=== PATIENT | male | born 1945 | race Caucasian/White ===

== ENCOUNTER → 2018-01-29 | Outpatient (REF) | payer OTHER ==
[2018-01-29 12:54] LABS: BASO # 0.1 10^3/uL (0.0-0.2); BASO % 1.2 % (0.0-1.0); EOS # 0.2 10^3/uL (0.0-0.50); EOS % 4.8 % (0.0-3.0); HEMATOCRIT 39.6 % (42.0-52.0); HEMOGLOBIN 12.8 g/dl (13.5-17.5); IMMATURE GRANULOCYTE % 0.2 % (0-3.0); LYMPH # 1.2 10^3/uL (1.5-4.5); LYMPH % 29.1 % (24.0-44.0); MEAN CORPUSCULAR HGB CONC 32.3 g/dl (32.0-36.5); MEAN CORPUSCULAR VOLUME 92.7 fl (80.0-96.0); MONO # 0.4 10^3/uL (0.0-0.8); MONO % 9.9 % (0.0-5.0); NEUTROPHILS # 2.3 10^3/uL (1.8-7.7); NEUTROPHILS % 54.8 % (36.0-66.0); PLATELET COUNT, AUTOMATED 262 10^3/uL (150-450); RED BLOOD COUNT 4.27 10^6/uL (4.30-6.10); RED CELL DISTRIBUTION WIDTH 13.8 % (11.5-14.5); WHITE BLOOD COUNT 4.1 10^3/uL (4.0-10.0)
[2018-01-29 13:14] LABS: ALBUMIN 3.5 GM/DL (3.2-5.2); ALKALINE PHOSPHATASE 70 U/L (45-117); ALT/SGPT 29 U/L (12-78); ANION GAP 5 MEQ/L (8-16); AST/SGOT 19 U/L (7-37); BILIRUBIN,TOTAL 0.3 MG/DL (0.2-1.0); BLOOD UREA NITROGEN 31 MG/DL (7-18); CALCIUM LEVEL 8.6 MG/DL (8.8-10.2); CARBON DIOXIDE LEVEL 30 MEQ/L (21-32); CHLORIDE LEVEL 107 MEQ/L (98-107); CHOLESTEROL LEVEL 179 MG/DL (<200); CHOLESTEROL RISK RATIO 2.386 (<5); CREATININE FOR GFR 0.83 MG/DL (0.70-1.30); GLOMERULAR FILTRATION RATE > 60.0 (>42); GLUCOSE, FASTING 92 MG/DL (70-100); HDL CHOLESTEROL 75 MG/DL (>40); NON-HDL-C 104 MG/DL; POTASSIUM SERUM 4.7 MEQ/L (3.5-5.1); SODIUM LEVEL 142 MEQ/L (136-145); TRIGLYCERIDES LEVEL 55 MG/DL (<150)
[2018-01-31 00:07] LABS: PSA TOTAL 2.9 ng/mL (0.0-4.0)
== END ==
LOC: M SFHCADAM 08:11
DX: Z00.00 Encounter for general adult medical examination without abnormal findings (principal); R35.0 Frequency of micturition; M25.511 Pain in right shoulder; E78.00 Pure hypercholesterolemia, unspecified
CPT/HCPCS: 84443

== ENCOUNTER → 2018-02-27 | Outpatient (REF) | payer OTHER ==
[2018-02-27 19:58] LABS: FERRITIN 115 NG/ML (26-388); IRON (FE) 98 UG/DL (65-175); PERCENT SATURATION 26.2 % (19.7-50.0); TOTAL IRON BINDING CAPACITY 374 UG/DL (250-450)
[2018-02-27 19:59] LABS: FOLATE 10.8 NG/ML
[2018-02-27 20:01] LABS: FREE T4 0.69 NG/DL (0.76-1.46)
[2018-02-27 20:05] LABS: BASO # 0.1 10^3/uL (0.0-0.2); BASO % 0.9 % (0.0-1.0); EOS # 0.1 10^3/uL (0.0-0.50); HEMATOCRIT 38.8 % (42.0-52.0); HEMOGLOBIN 12.8 g/dl (13.5-17.5); IMMATURE GRANULOCYTE % 0.3 % (0-3.0); LYMPH % 14.8 % (24.0-44.0); MEAN CORPUSCULAR VOLUME 91.1 fl (80.0-96.0); MONO # 0.7 10^3/uL (0.0-0.8); MONO % 9.5 % (0.0-5.0); NEUTROPHILS # 5.1 10^3/uL (1.8-7.7); NEUTROPHILS % 73.5 % (36.0-66.0); PLATELET COUNT, AUTOMATED 261 10^3/uL (150-450); RED BLOOD COUNT 4.26 10^6/uL (4.30-6.10); RED CELL DISTRIBUTION WIDTH 13.9 % (11.5-14.5)
[2018-02-27 23:34] LABS: VITAMIN B12 LEVEL 373 PG/ML
== END ==
LOC: M SFHCADAM 15:29
DX: E03.9 Hypothyroidism, unspecified (principal); D64.9 Anemia, unspecified
CPT/HCPCS: 82746

== ENCOUNTER → 2018-04-10 | Outpatient (REF) | payer OTHER ==
[2018-04-10 13:07] LABS: FREE T4 0.84 NG/DL (0.76-1.46)
== END ==
LOC: M SFHCADAM 08:00
DX: E03.9 Hypothyroidism, unspecified (principal)
CPT/HCPCS: 84443

== ENCOUNTER → 2018-05-29 | Outpatient (REF) | payer OTHER ==
[2018-05-29 15:37] LABS: FREE T4 0.92 NG/DL (0.76-1.46)
== END ==
LOC: M SFHCADAM 11:10
DX: E03.9 Hypothyroidism, unspecified (principal)
CPT/HCPCS: 84443

== ENCOUNTER → 2018-07-23 | Outpatient (REF) | payer OTHER ==
[2018-07-23 14:29] LABS: FREE T4 0.53 NG/DL (0.76-1.46)
== END ==
LOC: M SFHCADAM 08:02
DX: E03.9 Hypothyroidism, unspecified (principal)
CPT/HCPCS: 84443

== ENCOUNTER → 2018-08-27 | Outpatient (CLI) | payer MEDICARE ==
[~2018-08-27] MED LIST: LEVO75TA4 PO; PROS5TAB PO
[2018-08-27 11:17] LABS: HEMATOCRIT 39.1 % (42.0-52.0); HEMOGLOBIN 12.6 g/dl (13.5-17.5); MEAN CORPUSCULAR HEMOGLOBIN 29.7 pg (27.0-33.0); MEAN CORPUSCULAR HGB CONC 32.2 g/dl (32.0-36.5); MEAN CORPUSCULAR VOLUME 92.2 fl (80.0-96.0); PLATELET COUNT, AUTOMATED 288 10^3/uL (150-450); RED BLOOD COUNT 4.24 10^6/uL (4.30-6.10); WHITE BLOOD COUNT 6.6 10^3/uL (4.0-10.0)
[2018-08-27 11:23] LABS: ALBUMIN 3.3 GM/DL (3.2-5.2); ALT/SGPT 23 U/L (12-78); BILIRUBIN,TOTAL 0.2 MG/DL (0.2-1.0); BLOOD UREA NITROGEN 22 MG/DL (7-18); CALCIUM LEVEL 8.3 MG/DL (8.8-10.2); CARBON DIOXIDE LEVEL 30 MEQ/L (21-32); CHLORIDE LEVEL 106 MEQ/L (98-107); CREATININE FOR GFR 0.83 MG/DL (0.70-1.30); GLOMERULAR FILTRATION RATE > 60.0 (>42); GLUCOSE, FASTING 91 MG/DL (70-100); POTASSIUM SERUM 4.6 MEQ/L (3.5-5.1); SODIUM LEVEL 142 MEQ/L (136-145); TOTAL PROTEIN 7.2 GM/DL (6.4-8.2)
[2018-08-27 11:28] LABS: INR 1.05; PROTHROMBIN TIME 13.9 SECONDS (12.1-14.4)
[2018-08-27 11:41] LABS: ERYTHROCYTE SEDIMENTATION RATE 30 mm/hr (0-20)
--- NOTE | 2018-08-27 20:38 | ECGEPIP ---
Stationary ECG Study [facility] Test Date: 2018-08-27 Pat Name: GABRIELLE DORANTES Department: Room: - Gender: M Pond Tender: : 1945 Requested By: Casimiro Montenegro Order Number: [id number] Reading MD: Jae Castle Measurements Intervals [place] Rate: 64 P: 14 DE: 138 QRS: 45 QRSD: 94 T: 31 QT: 418 QTc: 434 Interpretive Statements SINUS RHYTHM Within normal limits. No prior ECG available for comparison at the time of interpretation. Electronically Signed On 08-27-2018 20:38:29 EST by Jae Castle
--- NOTE | 2018-08-28 02:32 | REP ---
Clinical: Preoperative assessment for arthroplasty . Comparison: None of the . Technique: PA and lateral. Findings: The mediastinum and cardiac silhouette are normal. The lung see are clear and without acute consolidation, effusion, or pneumothorax. The skeletal structures are intact and normal. Evidence for prior right shoulder replacement. Impression: 1. No acute cardiopulmonary process. Electronically Signed by Drake Cruz MD 08/28/2018 02:25 A
== END ==
LOC: M LAB 10:27
PROVIDERS: ATTEND Family Medicine
DX: Z01.818 Encounter for other preprocedural examination (principal); M17.11 Unilateral primary osteoarthritis, right knee

== ENCOUNTER 2018-09-18 06:59 | Inpatient (IN) | payer MEDICARE ==
--- NOTE | 2018-09-11 02:29 | HPE ---
DATE OF ADMISSION: 09/18/2018 CHIEF COMPLAINT: Right knee pain. HISTORY OF PRESENT ILLNESS: Peter is a pleasant 73-year-old male with progressively worsening right knee pain and stiffness. He has failed to improve with conservative treatment. He has elected for surgery for his continued symptoms. He has pain with weightbearing activities and his activities of daily living. X-rays of his knee are notable for advanced osteoarthritis of the right knee joint. He has consented for a right total knee arthroplasty by Dr. Berry Giron. Medical optimization was performed by Dr. Montenegro's office. ALLERGIES: No known allergies. CURRENT MEDICATIONS - Synthroid 75 mcg once a day PAST MEDICAL HISTORY: Hypothyroidism. PAST SURGICAL HISTORY: Right shoulder replacement. SOCIAL HISTORY: This patient is retired. Does not smoke or drink alcohol. FAMILY HISTORY: Family history is noncontributory. REVIEW OF SYSTEMS: This patient denies chest pain, heart palpitations, cough, wheezing, difficulty breathing and shortness of breath. He denies abdominal pain, nausea, vomiting, diarrhea or constipation. He denies recent upper respiratory infection or urinary tract infection symptoms. He does complain of persistent pain in the right knee and pain with weightbearing activities in the right knee. PHYSICAL EXAMINATION: GENERAL: He is a well-nourished, well-developed in no acute distress, alert male patient. He walks with a moderate limp favoring the right lower extremity. He is not using assistive devices. VITAL SIGNS: He is 5 feet 5, weighs 143 pounds with a temperature of 97.4, blood pressure 129/70, pulse of 58 and respirations of 18. NECK: Neck was supple without adenopathy or jugular venous distension. There were no carotid bruits appreciated upon auscultation. LUNGS: Lungs were clear to auscultation without rales or wheeze throughout. HEART: Regular rate and rhythm. ABDOMEN: Bowel sounds were present. EXTREMITIES: Examination of the knee revealed intact skin. He had decreased range of motion secondary to pain and stiffness. The limb was neurovascularly intact. LABORATORY DATA: EKG showed sinus rhythm at 64 beats per minute. Chest x-ray showed no acute cardiopulmonary disease processes. Complete blood count (CBC) showed red count of 4.24, hemoglobin of 12.6, hematocrit of 39.1 and a sedimentation rate of 30, otherwise within normal limits. Glucose 91, BUN 22, creatinine 0.83, sodium 142, potassium 4.6. Protime 13.9, INR 1.05. IMPRESSION: Symptomatic osteoarthritis of the right knee joint. PLAN: Consented for a right total knee arthroplasty by Dr. Berry Giron.
[2018-09-18] VITALS (8 sets, daily range): BP systolic 115–150; BP diastolic 57–90
[~2018-09-18] VITALS: Ht 172.7 cm; Wt 68.9 kg
[~2018-09-18 06:59] MED LIST changes: +ACETAMINOPHEN 500 MG TAB PO ONE; +LIDOCAINE 1% MDV 20ML VIAL SQ PRN; +LR 1,000 ML IV ONE
[2018-09-18] MEDS ORDERED: fentaNYL 100 MCG/2 ML INJECTION (J3010) As Ordered ONE ×2 (08:28→10:58)
[2018-09-18] MEDS ORDERED: MIDAZOLAM INJ 2 MG/2 ML VIAL (J2250) As Ordered ONE ×2 (08:28→10:58)
[2018-09-18] MEDS ORDERED: ceFAZolin 1GM INJ (J0690 PER 500MG) As Ordered ONE (09:52)
[2018-09-18] MEDS ORDERED: BUPIVACAINE HCL 0.25% 30 ML VIAL As Ordered ONE (09:52)
[2018-09-18] MEDS ORDERED: TRANEXAMIC ACID 100 MG/ML 10ML VIAL As Ordered ONE (09:52)
[2018-09-18] MEDS ORDERED: EPINEPHrine INJ 1 MG/ML 1ML AMP As Ordered ONE (09:52)
[2018-09-18] MEDS ORDERED: BUPIVACAINE LIPOSOME/PF 1.3% 20ML VIAL (13.3MG/ML)(EXPAREL)(C9290 PER1MG) As Ordered ONE (09:52)
[2018-09-18] MEDS ORDERED: MIDAZOLAM INJ 2 MG/2 ML VIAL (J2250) IV ONE (10:00)
[2018-09-18] MEDS ORDERED: fentaNYL 100 MCG/2 ML INJECTION (J3010) IV ONE (10:00)
[2018-09-18] MEDS ORDERED: PROPOFOL 200 MG/20 ML VIAL As Ordered ONE (10:58)
[2018-09-18] MEDS ORDERED: BUPIVACAINE/DEXTROSE 0.75% 2 ML AMP As Ordered ONE (10:58)
[2018-09-18] MEDS ORDERED: ePHEDrine SULFATE 25 MG/5 ML(5MG/ML) SYRINGE As Ordered ONE (11:25)
[2018-09-18] MEDS ORDERED: NORCO, ANEXSIA 5/325MG TABLET (HYDROcodone/ACETAMINOPHEN) PO PRN (13:00)
[2018-09-18] MEDS ORDERED: fentaNYL 100 MCG/2 ML INJECTION (J3010) IV PRN (13:00)
[2018-09-18] MEDS ORDERED: MORPHINE 4 MG/ML 1ML VIAL/SYRINGE (J2270) IV PRN (13:00)
[2018-09-18] MEDS ORDERED: LR 1,000 ML IV SCH ×2 (13:00)
[2018-09-18] MEDS ORDERED: HYDROMORPHONE HCL 0.5 MG/ 0.5 ML SYRINGE (J1170 PER 1) IV PRN (13:00)
[2018-09-18] MEDS ORDERED: ONDANSETRON 4MG/2ML VIAL (J2405) IV PRN (13:00)
[2018-09-18] MEDS ORDERED: PERCOCET 5MG/325MG TAB PO PRN (13:00)
--- NOTE | 2018-09-18 13:10 | RO ---
DATE OF PROCEDURE: 09/18/2018 PREOPERATIVE DIAGNOSIS: Right knee severe varus tricompartmental degenerative arthritis. POSTOPERATIVE DIAGNOSIS: Right knee severe varus tricompartmental degenerative arthritis. PROCEDURE: Right total knee arthroplasty using a size 6 cruciate retaining femoral component with a 10 mm rotating platform polyethylene insert and a 38 mm polyethylene button. Prosthesis made by [employer]. It was an ATTUNE knee. SURGEON: Latoya Giron MD CLINICAL PHARMACOLOGIST: Talisha Delgado PA-C ANESTHESIA: Right femoral nerve block with a spinal anesthetic. COMPLICATIONS: None. PROCEDURE: Antibiotics were given intravenously preoperatively, then a successful right femoral nerve block, and then a spinal anesthetic was established, then a tourniquet was placed right upper thigh and not inflated. The right lower extremity was carefully prepped and draped in the usual sterile fashion. Then, after appropriate time out, the tourniquet was inflated. A longitudinal incision was made for a medial parapatellar approach to the knee. Bovie cautery was used to coagulate crossing vessels. A subperiosteal dissection around the proximal medial portion of the tibia was performed for this varus knee. The subperiosteal dissection around the proximal lateral tibial plateau was then performed. We then everted the patella and flexed the knee. Drill was placed down the center of the femoral canal. Surrounding osteophytes off the femur were removed with a rongeur. Distal femoral jig was applied, attached to the intramedullary juma. It was set a 5 degree valgus cut at 9 mm resection level for a right knee. The block was pinned into position and distal femoral cut performed. AP sizing jig measured for a size 6. The 4-in-1 block was applied making sure the rotation was appropriate at 3 degrees, pinned into posiiton. The anterior, posterior and chamfer cuts were thus performed. We then applied the femoral template for the notchplasty that was secured on the distal femur and notchplasty performed. We then exposed the proximal tibia. Used the extramedullary alignment jig to estimate being parallel to the mechanical axis of the tibia. We referenced off the medial tibial condyle at the 4 mm resection level. We took a little bit less than that, just because I did not want to deepen the cut to much, and the block was pinned in position and secondary check of the extramedullary juma confirmed that we appeared to be parallel to the mechanical axis of the tibia. Proximal tibial osteotomy was thus performed. We then placed the lamina creative coordinator medially and performed a completion lateral meniscectomy with debridement of the posterolateral osteophytes. We then placed the lamina creative coordinator laterally and performed a completion medial meniscectomy with debridement of the posteromedial osteophytes. There was large loose body in the suprapatellar pouch that was also removed. We then trialed the spacers and the 10 fit the best. There was good symmetry between varus valgus stress testing both in flexion and extension. We then exposed the proximal tibia, sized for a #6 tray, which was pinned in position followed by the reamer and broach. The trial 10 polyethylene was placed, then the trial femoral component applied, brought the knee into extension, everted the patella, performed patellar osteotomy, sized for a 38 button. Lug holes were drilled and the trial was placed and the patellofemoral tracking was anatomic. We then drilled the holes for the femur, removed all the trial components, placed Exparel in the subperiosteal tissues around the distal femur and the proximal tibia. Mr. Delgado mixed the cement on the back table. He was also critical to the success of this difficult operation by helping me with soft tissue retraction, helping to close the wound, helping with manipulating the knee as needed so I could perform the operation smoothly and efficiently. We then dried all of the bony surfaces thoroughly after the bony surfaces were felt to be nice and irrigated and prepared for the cement. Then we cemented the tibial tray, removed excess cement, placed the polyethylene, cemented the femoral component and removed excess cement, brought the knee into extension, everted the patella, cemented the patellar button and held it with a clamp with the knee in extension, and then removed the excess cement. While the knee was held in extension, we copiously irrigated out the knee joint ten placed tranexamic acid and began closing the apex of the arthrotomy with two #1 PDS sutures. The medial parapatellar area was closed with a #1 PDS and then a running #1 STRATAFIX double armed was used to close the capsule. We then released the tourniquet, irrigated between layers, and closed the deep subdermal tissues with interrupted #2-0 PDS sutures. Skin was closed with libra, covered by an Optifoam with dry sterile bulky dressing. He was then transferred to the recovery room in stable condition. There were no intraoperative complications.
--- NOTE | 2018-09-18 13:16 | REP ---
Clinical: Status post knee replacement. Technique AP and cross-table lateral views. Findings: The patient is status post right knee replacement with normal positioning and appearance to the femoral and tibial components. Overlying postsurgical changes appreciated. Impression: Status post right knee replacement. Electronically Signed by Drake Cruz MD 09/18/2018 01:08 P
[2018-09-18] MEDS ORDERED: ACETAMINOPHEN TAB 650MG DOSE (2X325MG) PO PRN (15:45)
[2018-09-18] MEDS ORDERED: FLEET ENEMA PR PRN (15:45)
[2018-09-18] MEDS: NORCO, ANEXSIA 5/325MG TABLET (HYDROcodone/ACETAMINOPHEN) PO PRN ×2 (15:59→20:32)
[2018-09-19 02:00] VITALS: BP 112/55
[2018-09-19 06:00] VITALS: BP 108/55
[2018-09-19] MEDS ORDERED: LEVOTHYROXINE 75MCG TABLET (0.075MG) PO SCH (06:00)
[2018-09-19] MEDS ORDERED: XARE10TA PO (06:47)
[2018-09-19] MEDS ORDERED: HYDR-3713 PO (06:47)
[2018-09-19 06:51] LABS: HEMOGLOBIN 10.5 g/dl (13.5-17.5); MEAN CORPUSCULAR HEMOGLOBIN 29.8 pg (27.0-33.0); MEAN CORPUSCULAR HGB CONC 32.8 g/dl (32.0-36.5); MEAN CORPUSCULAR VOLUME 90.9 fl (80.0-96.0); PLATELET COUNT, AUTOMATED 249 10^3/uL (150-450); RED BLOOD COUNT 3.52 10^6/uL (4.30-6.10); WHITE BLOOD COUNT 9.3 10^3/uL (4.0-10.0)
[2018-09-19 07:13] LABS: BLOOD UREA NITROGEN 23 MG/DL (7-18); CALCIUM LEVEL 7.9 MG/DL (8.8-10.2); CARBON DIOXIDE LEVEL 28 MEQ/L (21-32); CHLORIDE LEVEL 103 MEQ/L (98-107); CREATININE FOR GFR 0.84 MG/DL (0.70-1.30); GLOMERULAR FILTRATION RATE > 60.0 (>42); GLUCOSE, FASTING 113 MG/DL (70-100); POTASSIUM SERUM 4.1 MEQ/L (3.5-5.1); SODIUM LEVEL 136 MEQ/L (136-145)
[2018-09-19 07:22] LABS: INR 1.16
[2018-09-19] MEDS: NORCO, ANEXSIA 5/325MG TABLET (HYDROcodone/ACETAMINOPHEN) PO PRN (08:24)
[2018-09-19] MEDS ORDERED: SENOKOT S TAB PO SCH (09:00)
[2018-09-19] MEDS ORDERED: MOM 30ML SUSPENSION UDC PO SCH (09:00)
[2018-09-19] MEDS ORDERED: MIRALAX *UNIT DOSE* 17GM PACKET PO SCH (09:00)
[2018-09-19] MEDS ORDERED: LIDOCAINE 1% MDV 20ML VIAL ONE (11:04)
[2018-09-19] MEDS ORDERED: ROPIvacaine 0.5% 30 ML INJECTION (J2795 PER 1MG) ONE (11:04)
[2018-09-19] MEDS ORDERED: dexameTHASONE 10 MG/1 ML VIAL PRES.FREE (J1100) ONE (11:04)
[2018-09-19] MEDS ORDERED: RIVAROXABAN 10 MG TAB (XARELTO) PO SCH (18:00)
--- NOTE | 2018-09-21 15:20 | DSES ---
DATE OF ADMISSION: 09/18/2018 DATE OF DISCHARGE: 09/19/2018 ATTENDING PHYSICIAN: Dr. Berry Giron ADMISSION DIAGNOSIS: Right knee osteoarthritis. DISCHARGE DIAGNOSIS: Right knee osteoarthritis status post right total knee arthroplasty. PROCEDURE PERFORMED: Right total knee arthroplasty. OTHER DIAGNOSES: Hypothyroidism. HISTORY AND HOSPITAL COURSE: This is a pleasant 73-year-old gentleman who was admitted to the hospital for elective right knee total arthroplasty with Dr. Giron. Surgery was without complications and his hospital course was without complication. He was weightbearing with physical therapy on the day of surgery and his pain was controlled postoperatively. He will follow DVT prophylaxis protocol and will be sent home on his preoperative medications as well as oral pain medications for pain control. We will see him back in 10-14 days in our office for initial postop visit. Postoperative instructions to include wound care to include but not limited to wound care were discussed with the patient and all questions were answered.
== END 2018-09-19 11:05 | disposition home or self-care (01) | DRG 470 ==
LOC: M OR 06:59 → M MS5PR 14:00
PROVIDERS: ADMIT Orthopaedic Surgery; ATTEND Orthopaedic Surgery
PROC: 0SRC0J9 Replacement of Right Knee Joint with Synthetic Substitute, Cemented, Open Approach (ICD-10-PCS; principal; 2018-09-18 09:10)
DX: M17.11 Unilateral primary osteoarthritis, right knee (principal); E03.9 Hypothyroidism, unspecified

== ENCOUNTER → 2018-10-08 | Outpatient (REF) | payer MEDICARE ==
[~2018-10-08] MED LIST changes: -ACETAMINOPHEN 500 MG TAB PO ONE; +HYDR-3713 PO; -LIDOCAINE 1% MDV 20ML VIAL SQ PRN; -LR 1,000 ML IV ONE; +XARE10TA PO
[2018-10-08 13:33] LABS: FREE T4 0.79 NG/DL (0.76-1.46); THYROID STIMULATING HORMONE 4.9 uIU/ML (0.358-3.740)
== END ==
LOC: M SFHCADAM 09:11
PROVIDERS: ATTEND Physician Assistant Medical
DX: E03.9 Hypothyroidism, unspecified (principal)

== ENCOUNTER → 2018-10-16 | Outpatient (CLI) | payer MEDICARE ==
[2018-10-16 14:19] LABS: PTH INTACT 38.5 PG/ML (18.5-88.0); RHEUMATOID FACTOR QUANT < 10.0 IU/ML (<15.0)
[2018-10-18 00:08] LABS: ANTINUCLEAR ANTIBODIES DIRECT Negative (Negative)
== END ==
LOC: M LABDRWAD 10:48
PROVIDERS: ATTEND Allergy & Immunology Allergy
DX: L29.9 Pruritus, unspecified (principal)

== ENCOUNTER → 2018-10-29 | Outpatient (REF) | payer MEDICARE ==
[2018-10-29 15:14] LABS: ALBUMIN 3.6 GM/DL (3.2-5.2); ALT/SGPT 38 U/L (12-78); BILIRUBIN,TOTAL 0.4 MG/DL (0.2-1.0); BLOOD UREA NITROGEN 23 MG/DL (7-18); CALCIUM LEVEL 8.2 MG/DL (8.8-10.2); CARBON DIOXIDE LEVEL 30 MEQ/L (21-32); CHLORIDE LEVEL 107 MEQ/L (98-107); CREATININE FOR GFR 0.91 MG/DL (0.70-1.30); GLOMERULAR FILTRATION RATE > 60.0 (>42); GLUCOSE, FASTING 91 MG/DL (70-100); MAGNESIUM LEVEL 2.1 MG/DL (1.8-2.4); PHOSPHORUS LEVEL 3.9 MG/DL (2.5-4.9); POTASSIUM SERUM 4.6 MEQ/L (3.5-5.1); PTH INTACT 47.2 PG/ML (18.5-88.0); SODIUM LEVEL 141 MEQ/L (136-145); THYROXINE (T4) 6.9 UG/DL (4.5-12.0); TOTAL PROTEIN 7.4 GM/DL (6.4-8.2); TOTAL T3 90.6 NG/DL (60.0-181.0)
== END ==
LOC: M LAB REF 13:45
DX: H15.89 Other disorders of sclera (principal)

== ENCOUNTER → 2019-01-16 | Outpatient (CLI) | payer MEDICARE ==
[~2019-01-16] MED LIST changes: +DOXE25CA PO; +FERR325T3 PO; +IRON27TA2 PO; +LEVO88TA3 PO; +VITA100067 PO; +VITAD1000T PO
[2019-01-16 11:22] LABS: HEMATOCRIT 38.6 % (42.0-52.0); HEMOGLOBIN 12.5 g/dl (13.5-17.5); MEAN CORPUSCULAR HEMOGLOBIN 29.6 pg (27.0-33.0); MEAN CORPUSCULAR HGB CONC 32.4 g/dl (32.0-36.5); MEAN CORPUSCULAR VOLUME 91.5 fl (80.0-96.0); PLATELET COUNT, AUTOMATED 279 10^3/uL (150-450); RED BLOOD COUNT 4.22 10^6/uL (4.30-6.10); WHITE BLOOD COUNT 5.1 10^3/uL (4.0-10.0)
[2019-01-16 11:32] LABS: INR 1.01; PROTHROMBIN TIME 13.4 SECONDS (12.1-14.4)
[2019-01-16 11:46] LABS: ALBUMIN 3.4 GM/DL (3.2-5.2); ALT/SGPT 36 U/L (12-78); BILIRUBIN,TOTAL 0.3 MG/DL (0.2-1.0); BLOOD UREA NITROGEN 31 MG/DL (7-18); CALCIUM LEVEL 8.4 MG/DL (8.8-10.2); CARBON DIOXIDE LEVEL 30 MEQ/L (21-32); CHLORIDE LEVEL 104 MEQ/L (98-107); CREATININE FOR GFR 0.82 MG/DL (0.70-1.30); GLOMERULAR FILTRATION RATE > 60.0 (>42); GLUCOSE, FASTING 88 MG/DL (70-100); POTASSIUM SERUM 4.9 MEQ/L (3.5-5.1); SODIUM LEVEL 140 MEQ/L (136-145); TOTAL PROTEIN 7.2 GM/DL (6.4-8.2)
[2019-01-16 11:57] LABS: ERYTHROCYTE SEDIMENTATION RATE 20 mm/hr (0-20)
--- NOTE | 2019-01-16 11:59 | REP ---
CHEST X-RAY: Two views. HISTORY: Preoperative testing. COMPARISON CHEST X-RAY: August 27, 2018. FINDINGS: The lungs are symmetrically aerated and free of infiltrate. The pleural angles are sharp. Heart size is normal. The thoracic aorta is tortuous as before. Pulmonary vasculature is not increased. No acute bony abnormality is seen. There are degenerative changes in the thoracic spine. A prosthetic right shoulder articulation is seen. There is evidence of glenohumeral osteoarthritis on the left. IMPRESSION: No active cardiopulmonary disease. Electronically Signed by Kev Sena MD 01/16/2019 12:40 P
--- NOTE | 2019-01-17 21:46 | ECGEPIP ---
[facility] Test Date: 2019-01-16 Pat Name: GABRIELLE DORANTES Department: Room: - Gender: Male Flat Locker: RF : 1945 Requested By: Latoya Smart Order Number: [id number] Reading MD: aJe Castle Measurements Intervals [place] Rate: 56 P: FL: 128 QRS: 50 QRSD: 92 T: 46 QT: 416 QTc: 402 Interpretive Statements SINUS BRADYCARDIA NONSPECIFIC ST-T Abnormalities Repolarization abnormalities new compared with 08/27/2018 at 10:54 AM. Electronically Signed on 01-17-2019 21:46:47 EDT by Jae Castle
== END ==
LOC: M LAB 10:53
PROVIDERS: ATTEND Orthopaedic Surgery
DX: Z01.818 Encounter for other preprocedural examination (principal); E07.9 Disorder of thyroid, unspecified; R00.1 Bradycardia, unspecified; M17.12 Unilateral primary osteoarthritis, left knee

== ENCOUNTER 2019-01-29 07:00 | Inpatient (IN) | payer MEDICARE ==
--- NOTE | 2019-01-21 14:07 | HPE ---
DATE OF ADMISSION: 01/29/2019 CHIEF COMPLAINT: Left knee pain. HISTORY OF PRESENT ILLNESS: Mr. Poole is a pleasant 73-year-old male with progressively worsening left knee pain and stiffness. He has failed to improve with conservative treatment. He has elected for surgery for his continued symptoms. He has pain with weightbearing activities and his activities of daily living. X-rays of his knee are notable for advanced osteoarthritis of the left knee joint. He has consented for a left total knee arthroplasty by Dr. eBrry Houston. Medical optimization was performed by Dr. Montenegro. ALLERGIES: None. CURRENT MEDICATIONS: - Vitamin D2 - Synthroid 75 mcg a day - Proscar - iron PAST MEDICAL HISTORY: Includes hypothyroidism and benign prostatic hypertrophy (BPH). PAST SURGICAL HISTORY: Includes right total knee arthroplasty and right shoulder replacement. SOCIAL HISTORY: This gentleman is retired. Does not smoke or drink alcohol. FAMILY HISTORY: Noncontributory. REVIEW OF SYSTEMS: This patient denies chest pain, heart palpitations, cough, wheezing, difficulty breathing and shortness of breath. He denies abdominal pain, nausea, vomiting, diarrhea or constipation. He denies recent upper respiratory infection or urinary tract infection symptoms. He does complain of persistent pain in the left knee. PHYSICAL EXAMINATION: General: He is a well-nourished, well-developed, in no acute distress, alert male. He walks with a moderate limp favoring the left lower extremity. He is not using assistive devices. Vital Signs: He is 66 inches tall, weighs 149.6 pounds, with a temperature of 97.7, blood pressure 130/80, pulse of 68, and respirations of 18. Neck was supple without adenopathy or jugular venous distention. There were no carotid bruits upon auscultation. Lungs were clear to auscultation without rales or wheeze throughout. Heart: Regular rate and rhythm. Abdomen: Bowel sounds were present. Extremities: Examination of the knee revealed intact skin. He had decreased range of motion secondary to pain and stiffness. The limb is neurovascularly intact. LABORATORY DATA: Chest x-ray showed no acute cardiopulmonary disease processes. EKG showed sinus bradycardia. Protime was 13.4, INR 1.01, glucose 88, BUN 31, creatinine 0.82, sodium 140, potassium 4.9. CBC showed a red count of 4.22, hemoglobin of 12.5, hematocrit of 38.6 and sed rate was 20. IMPRESSION: Symptomatic osteoarthritis of the left knee joint. PLAN: Consented for a left total knee arthroplasty by Dr. Berry Giron.
[~2019-01-29] VITALS: Ht 172.7 cm; Wt 67.5 kg
[2019-01-29] VITALS (7 sets, daily range): BP systolic 114–154; BP diastolic 70–83
[~2019-01-29 07:00] MED LIST changes: +LIDOCAINE 1% MDV 20ML VIAL SQ PRN
[2019-01-29] MEDS ORDERED: EPINEPHrine INJ 1 MG/ML 1ML AMP ONE (07:01)
[2019-01-29] MEDS ORDERED: ROPIvacaine 0.5% 30 ML INJECTION (J2795 PER 1MG) ONE (07:01)
[2019-01-29] MEDS ORDERED: dexameTHASONE 10 MG/1 ML VIAL PRES.FREE (J1100) ONE (07:01)
[2019-01-29] MEDS ORDERED: LR 1,000 ML IV SCH ×3 (07:30→12:15)
[2019-01-29] MEDS ORDERED: ACETAMINOPHEN 500 MG TAB PO ONE (07:30)
[2019-01-29] MEDS ORDERED: PROPOFOL 200 MG/20 ML VIAL As Ordered ONE (08:06)
[2019-01-29] MEDS ORDERED: LIDOCAINE 2% INJ 100 MG/5 ML SDV (FOR ANES.) As Ordered ONE (08:06)
[2019-01-29] MEDS ORDERED: MIDAZOLAM INJ 2 MG/2 ML VIAL (J2250) As Ordered ONE (08:08)
[2019-01-29] MEDS ORDERED: fentaNYL 100 MCG/2 ML INJECTION (J3010) As Ordered ONE (08:08)
[2019-01-29] MEDS ORDERED: ePHEDrine SULFATE 25 MG/5 ML(5MG/ML) SYRINGE As Ordered ONE ×2 (08:12→11:16)
[2019-01-29] MEDS ORDERED: LR 1,000 ML IV ONE (08:45)
[2019-01-29] MEDS ORDERED: MIDAZOLAM INJ 2 MG/2 ML VIAL (J2250) IV ONE (09:00)
[2019-01-29] MEDS ORDERED: fentaNYL 100 MCG/2 ML INJECTION (J3010) IV ONE (09:00)
[2019-01-29] MEDS ORDERED: ceFAZolin 1GM INJ (J0690 PER 500MG) As Ordered ONE (09:11)
[2019-01-29] MEDS ORDERED: BUPIVACAINE HCL 0.25% 30 ML VIAL As Ordered ONE (09:12)
[2019-01-29] MEDS ORDERED: EPINEPHrine INJ 1 MG/ML 1ML AMP As Ordered ONE (09:12)
[2019-01-29] MEDS ORDERED: BUPIVACAINE LIPOSOME/PF 1.3% 20ML VIAL (13.3MG/ML)(EXPAREL)(C9290 PER1MG) As Ordered ONE (09:13)
[2019-01-29] MEDS ORDERED: TRANEXAMIC ACID 100 MG/ML 10ML VIAL As Ordered ONE (09:14)
[2019-01-29] MEDS ORDERED: ONDANSETRON 4MG/2ML VIAL (J2405) IV PRN (12:15)
[2019-01-29] MEDS ORDERED: fentaNYL 100 MCG/2 ML INJECTION (J3010) IV PRN (12:15)
[2019-01-29] MEDS ORDERED: HYDROMORPHONE HCL 0.5 MG/ 0.5 ML SYRINGE (J1170 PER 1) IV PRN (12:15)
[2019-01-29] MEDS ORDERED: FLEET ENEMA PR PRN (12:15)
--- NOTE | 2019-01-29 12:46 | REP ---
LEFT KNEE TWO VIEWS: Two portable views of the left knee performed in the AP and lateral projections. A total knee prosthesis is in good position. Structures are intact and well aligned. Metallic skin libra are seen anteriorly. Electronically Signed by Nitin Worley MD 01/29/2019 07:38 P
--- NOTE | 2019-01-29 13:07 | RO ---
DATE OF PROCEDURE: 01/29/2019 PREOPERATIVE DIAGNOSIS: Left knee degenerative arthritis. POSTOPERATIVE DIAGNOSIS: Left knee degenerative arthritis. PROCEDURE: Left total knee arthroplasty using a size 6 cruciate retaining femoral component, size 6 tibial tray, 10 mm rotating platform polyethylene insert and a 38 mm polyethylene button. All components were cemented. The prosthesis was an ATTUNE knee made by [employer]. SURGEON: Latoya Giron MD MENTAL RETARDATION AIDE: COBY Wetzel ANESTHESIA: Spinal, left femoral nerve block. COMPLICATIONS: None. ESTIMATED BLOOD LOSS: Less than 20 mL. SPECIMENS: Joint surface. PROCEDURE: Antibiotics were given intravenously preoperatively and then a successful left femoral nerve block, and then a spinal anesthetic was induced, tourniquet placed left upper thigh and not inflated. The left lower extremity was then carefully prepped and draped in the usual sterile fashion, elevated and after appropriate time out, the tourniquet was inflated. A longitudinal incision was made for a medial parapatellar approach to the knee. Bovie cautery was used to coagulate crossing vessels. Arthrotomy performed, subperiosteal dissection around the proximal, medial, and lateral tibial plateaus. The patella was then everted and the knee flexed. Drill placed down the center of the femoral canal followed by the intramedullary juma with the distal femoral cutting jig applied. It was set at 5 degree valgus cut for a left knee at 9 mm resection level. The block was pinned into position and distal femoral cut performed. AP sizing jig measured for a size 6 femoral component. 3 degrees of external rotation was dialed in for a left knee. The drills were placed followed by the 4-in-1 block, then the anterior, posterior and chamfer cuts were performed taking great care to protect the surrounding soft tissues. The notch jig was then applied and notch performed on the distal anterior femur. We then exposed the proximal tibia, used the extramedullary alignment jig to estimate being parallel to the mechanical axis of the tibia. We referenced off the medial tibial condyle at the 4 mm resection level and the block was pinned into position. We then applied the cutting block, secondary check with the extramedullary juma confirmed that we appeared to be parallel to the mechanical axis. Thus, the proximal tibial osteotomy was thus performed. We then placed the lamina record producer laterally and performed a completion medial meniscectomy with debridement of the posteromedial osteophytes. We then placed the lamina record producer medially and performed a completion lateral meniscectomy with debridement of the posteromedial osteophytes. Spacer blocks were than applied after sizing from begging of the 6 and advanced up to a size 10, I had the best fit. We did release a bit of the PCL to help minimize some posteromedial tightness and made sure we had adequate posterior and medial release. This balanced the stability of the knee both in flexion and extension out nicely. We then exposed the proximal tibia, sized for a 6 tray, which was pinned into position followed by the reamer and broach. The trial placed, trial femoral component was placed, brought the knee into extension, everted the patella, performed patellar osteotomy, sized for a 38 button. Lug holes were drilled. Patellofemoral tracking was anatomic. We drilled the lug holes for the femur, removed all the trial components, copiously pulsatile lavage irrigated out the knee joint, instilled Exparel in the subperiosteal tissues, around the distal femur and the proximal tibia. Mr. Garcia mixed the cement on the back table as I prepared the bony surfaces for cementing with a copious amount of pulsatile lavage irrigant solution. Mr. Garcia was also critical to the success of this difficult surgery by helping with the appropriate soft tissue retraction, manipulating the leg as needed, helped to close the wound, helped to prepare the patient, helped me mix the cement amongst many other tasks allowing me to perform the operation smoothly, efficiently and safely. We then cemented the tibial tray, removed excess cement, placed the polyethylene, cemented the femoral component and removed excess cement, brought the knee into extension, everted the patella, cemented the patellar component, removed the excess cement, and then held it with a clamp with the knee in extension until the knee hardened. As we were awaiting this, we copiously irrigated out the knee joint once again then placed tranexamic acid, then began closing the apex of the arthrotomy with two #1 PDS sutures. The medial parapatellar area was closed with a #1 PDS and then a double armed STRATAFIX used to close the capsule, then the tourniquet was released. We irrigated copiously between layers, and then the subdermal tissues were closed with interrupted #2-0 PDS sutures. Skin was closed with libra, covered by an Optifoam with dry sterile bulky dressing. He was then transferred to the recovery room in stable condition. There were no intraoperative complications.
[2019-01-29] MEDS: ACETAMINOPHEN TAB 650MG DOSE (2X325MG) PO PRN (17:06)
--- NOTE | 2019-01-29 17:22 | CR.PDOC ---
General Date of Consultation: Jan 29, 2019 Referring Provider: Latoya Giron Primary Care Physician Gabby Ventura MD Attending Physician: YOVANY CHAWLA MD Consultation REASON FOR CONSULTATION/CHIEF COMPLAINT: Post-operative medical care and medicat ions. HISTORY OF PRESENT ILLNESS: Mr. Poole is a 73-year-old male with left knee arthritis. He is accompanied by his , Pamela. Hospitalist is consulted for post-operative management and medications. Patient states that he has "[id number]" arthritis in his left knee. He denies numbness, tingling, or weakness. He states that he has some pain associated with the injection site in his low back as well as some pain just above his left knee. ALLERGIES: Please see below. HOME MEDICATIONS: Please see below. PAST MEDICAL HISTORY: 1. Hypothyroidism. 2. BPH. 3. Iron deficiency anemia. 4. Vitamin D deficiency. PAST SURGICAL HISTORY: 1. Right total knee arthroplasty. 2. Right shoulder replacement. 3. Left total knee arthroplasty. FAMILY HISTORY: Father: , 89, DM. Mother: , 88, sepsis, heart disease. Siblings: - Sisters: x2, alive, 66 and 70, healthy. Children: x4, alive and healthy. SOCIAL HISTORY: Marital status and/or living arrangements: for 51 years. Children: x4. 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 Tobacco use: No. ETOH: No. Illicit drug use: No. IV drug use: No. Other relevant social factors: No. REVIEW OF SYSTEMS: CONSTITUTIONAL: Denies fever, night sweats, chills. HEENT: Denies headache, nasal congestion, itchy/watery eyes, sore throat, cough. CARDIOVASCULAR: Denies chest pain. RESPIRATORY: Denies shortness of breath. GENITOURINARY: Admits to urinary frequency secondary to enlarged prostate. MUSCULOSKELETAL: Admits to arthritis. GASTROINTESTINAL: Denies nausea, vomiting, abdominal pain, constipation, diarrhea. NEUROLOGICAL: Denies numbness, tingling. HEMATOLOGIC/LYMPHATIC: Denies bleeding. ALLERGIC/IMMUNOLOGIC: Denies allergy symptoms. PHYSICAL EXAMINATION: VITAL SIGNS: Please see below. GENERAL APPEARANCE: Well nourished, well developed male, alert and conversant, answers questions appropriately, no acute distress. HEENT: Atraumatic, normocephalic, PERRL, EOMI, oral mucosa appears pink and moist, nasal septum appears midline, wears spectacles. RESPIRATORY: Clear to auscultation bilaterally, adequate inspiratory and expiratory airway excursion, symmetric airway entry, no focal consolidations, no wheeze, rhonchi, crackles. CARDIOVASCULAR: Regular rate and rhythm, normal S1 and S2, no murmur, rub, click. ABDOMEN: Flat, soft, non-tender, non-distended, bowel sounds diminished throughout. EXTREMITIES: TEDs and sequentials in place, peripheral pulses equal and symmetrical. NEUROLOGICAL: CN II-XII grossly intact. PSYCHIATRIC: Mood and affect appropriate. LABORATORY DATA: Please see below. ASSESSMENT/PLAN: 1. Left knee arthritis s/p total left knee arthroplasty Orthopedics primary Defer to orthopedics for pain management, pre-/post-procedure antibiotics, and anticoagulation 2. Hypothyroidism C/W Levothyroxine 3. BPH C/W Finasteride 4. Iron deficiency anemia C/W Ferrous Sulfate 5. Vitamin D deficiency C/W Vitamin D supplementation Vital Signs/I&O Vital Signs Date Time Temp Pulse Resp B/P (MAP) Pulse Ox O2 Delivery O2 Flow Rate FiO2 01/29/19 16:51 18 01/29/19 16:30 98.8 66 140/79 (99) 97 01/29/19 09:40 3 Allergies Coded Allergies: No Known Allergies (Unverified , 01/15/19) Home Medications Scheduled Ferrous Sulfate (Ferrous Sulfate) 325 Mg Tablet.dr, 325 MG PO DAILY, (Reported) Finasteride (Proscar) 5 Mg Tab, 5 MG PO DAILY, (Reported) Levothyroxine Sodium (Levothyroxine Sodium) 88 Mcg Tab, 88 MCG PO DAILY, (Reported) Vitamin D (Vitamin D3) 1,000 Unit Tablet, 5,000 UNITS PO DAILY, (Reported) FER CLARKE DO Jan 29, 2019 17:22
[2019-01-29] MEDS ORDERED: VITAMIN D 1,000 INTERNATIONAL UNITS TABLET PO SCH (21:00)
[2019-01-29] MEDS ORDERED: FERROUS SULFATE 325MG TAB PO SCH (21:00)
[2019-01-29] MEDS: HYDROMORPHONE HCL 0.5 MG/ 0.5 ML SYRINGE (J1170 PER 1) IV PRN (21:41)
[2019-01-30 01:30] VITALS: BP 146/81
[2019-01-30] MEDS: HYDROMORPHONE HCL 0.5 MG/ 0.5 ML SYRINGE (J1170 PER 1) IV PRN ×2 (01:54→05:11)
[2019-01-30] MEDS: ACETAMINOPHEN TAB 650MG DOSE (2X325MG) PO PRN (03:48)
[2019-01-30] MEDS ORDERED: ONDANSETRON 4 MG TAB (S0181) PO PRN (05:45)
[2019-01-30] MEDS ORDERED: PERCOCET 5MG/325MG TAB PO PRN ×2 (05:45)
[2019-01-30 05:58] LABS: HEMATOCRIT 32.9 % (42.0-52.0); MEAN CORPUSCULAR HEMOGLOBIN 30.2 pg (27.0-33.0); MEAN CORPUSCULAR HGB CONC 33.4 g/dl (32.0-36.5); MEAN CORPUSCULAR VOLUME 90.4 fl (80.0-96.0); PLATELET COUNT, AUTOMATED 223 10^3/uL (150-450); RED BLOOD COUNT 3.64 10^6/uL (4.30-6.10); WHITE BLOOD COUNT 8.8 10^3/uL (4.0-10.0)
[2019-01-30 06:00] VITALS: BP 129/68
[2019-01-30] MEDS ORDERED: LEVOTHYROXINE 88MCG TABLET (0.088 MG) PO SCH (06:00)
[2019-01-30 06:20] LABS: BLOOD UREA NITROGEN 21 MG/DL (7-18); CALCIUM LEVEL 8.2 MG/DL (8.8-10.2); CARBON DIOXIDE LEVEL 29 MEQ/L (21-32); CHLORIDE LEVEL 104 MEQ/L (98-107); CREATININE FOR GFR 0.88 MG/DL (0.70-1.30); GLOMERULAR FILTRATION RATE > 60.0 (>42); GLUCOSE, FASTING 106 MG/DL (70-100); POTASSIUM SERUM 3.9 MEQ/L (3.5-5.1); SODIUM LEVEL 138 MEQ/L (136-145)
[2019-01-30] MEDS ORDERED: PERC5TAB12 PO (06:24)
[2019-01-30] MEDS ORDERED: XARE10TA PO (06:24)
[2019-01-30] MEDS ORDERED: MIRALAX *UNIT DOSE* 17GM PACKET PO SCH (09:00)
[2019-01-30] MEDS ORDERED: MOM 30ML SUSPENSION UDC PO SCH (09:00)
[2019-01-30] MEDS ORDERED: FINASTERIDE 5 MG TAB PO SCH (09:00)
[2019-01-30] MEDS ORDERED: RIVAROXABAN 10 MG TAB (XARELTO) PO SCH (18:00)
== END 2019-01-30 12:05 | disposition home or self-care (01) | DRG 470 ==
LOC: M SDC 07:00 → EDSTATUS 07:30 → M SDC 12:29 → M MS5PR 12:30
PROVIDERS: ADMIT Orthopaedic Surgery; ATTEND Orthopaedic Surgery
PROC: 0SRD0J9 Replacement of Left Knee Joint with Synthetic Substitute, Cemented, Open Approach (ICD-10-PCS; principal; 2019-01-29 09:45)
DX: M17.12 Unilateral primary osteoarthritis, left knee (principal); Z79.899 Other long term (current) drug therapy; E03.9 Hypothyroidism, unspecified; N40.0 Benign prostatic hyperplasia without lower urinary tract symptoms; D50.9 Iron deficiency anemia, unspecified; Z96.651 Presence of right artificial knee joint; Z96.611 Presence of right artificial shoulder joint; E55.9 Vitamin D deficiency, unspecified

== ENCOUNTER → 2019-04-01 | Outpatient (REF) | payer MEDICARE ==
[~2019-04-01] MED LIST changes: -LIDOCAINE 1% MDV 20ML VIAL SQ PRN; +PERC5TAB12 PO
== END ==
LOC: M SFHCADAM 08:15
PROVIDERS: ATTEND Nurse Practitioner Family
DX: Z12.5 Encounter for screening for malignant neoplasm of prostate (principal)

== ENCOUNTER → 2019-10-02 | Outpatient (REF) | payer MEDICARE ==
[~2019-10-02] MED LIST changes: +CHOL100029 PO; -VITAD1000T PO
[2019-10-02 11:02] LABS: BASO # 0.1 10^3/uL (0.0-0.2); BASO % 1.7 % (0.0-1.0); EOS # 0.3 10^3/uL (0.0-0.5); EOS % 6.2 % (0.0-3.0); HEMATOCRIT 40.1 % (42.0-52.0); LYMPH # 1.7 10^3/uL (1.5-5.0); LYMPH % 35.8 % (24.0-44.0); MEAN CORPUSCULAR HEMOGLOBIN 30.4 pg (27.0-33.0); MEAN CORPUSCULAR HGB CONC 32.4 g/dl (32.0-36.5); MEAN CORPUSCULAR VOLUME 93.7 fl (80.0-96.0); MONO # 0.6 10^3/uL (0.0-0.8); MONO % 11.6 % (0.0-5.0); NEUTROPHILS # 2.2 10^3/uL (1.5-8.5); NEUTROPHILS % 44.7 % (36.0-66.0); PLATELET COUNT, AUTOMATED 248 10^3/uL (150-450); RED BLOOD COUNT 4.28 10^6/uL (4.30-6.10); WHITE BLOOD COUNT 4.8 10^3/uL (4.0-10.0)
[2019-10-02 11:33] LABS: ALBUMIN 3.8 GM/DL (3.2-5.2); ALT/SGPT 34 U/L (12-78); BILIRUBIN,TOTAL 0.3 MG/DL (0.2-1.0); BLOOD UREA NITROGEN 36 MG/DL (7-18); CARBON DIOXIDE LEVEL 30 MEQ/L (21-32); CHLORIDE LEVEL 106 MEQ/L (98-107); CHOLESTEROL LEVEL 149 MG/DL (<200); CHOLESTEROL RISK RATIO 2.191 (<5); CREATININE FOR GFR 0.96 MG/DL (0.70-1.30); GLOMERULAR FILTRATION RATE > 60.0 (>42); GLUCOSE, FASTING 65 MG/DL (70-100); HDL CHOLESTEROL 68 MG/DL (>40); LDL CHOLESTEROL 72 MG/DL (<100); NON-HDL-C 81 MG/DL; POTASSIUM SERUM 4.3 MEQ/L (3.5-5.1); SODIUM LEVEL 141 MEQ/L (136-145); TOTAL PROTEIN 6.8 GM/DL (6.4-8.2); TRIGLYCERIDES LEVEL 43 MG/DL (<150)
[2019-10-02 11:56] LABS: TOTAL 25(OH) VITAMIN D 65.1 NG/ML (30.0-100.0)
== END ==
LOC: M SFHCADAM 08:04
PROVIDERS: ATTEND Physician Assistant Medical
DX: E03.9 Hypothyroidism, unspecified (principal); E55.9 Vitamin D deficiency, unspecified; Z79.899 Other long term (current) drug therapy

== ENCOUNTER → 2020-02-10 | Outpatient (CLI) | payer MEDICARE ==
--- NOTE | 2020-02-11 21:06 | ECHO ---
DATE OF PROCEDURE: 02/10/2020 REFERRING INDIVIDUAL: Shanda Quach, Physician Search Engine Optimization Strategist INDICATION: Chronic systolic heart failure. HEIGHT: 68 inches. WEIGHT: 149 pounds. 2D MEASUREMENTS: Aortic root: 3.0 cm Left ventricle diastole: 5.2 cm Ventricular septum: 0.85 cm Posterior wall: 0.83 cm Left atrium: 4.2 cm Aortic annulus: 2.5 cm Inferior vena cava: 2.0 cm (more than 50% respiratory variation). DOPPLER MEASUREMENTS: No aortic regurgitation. No aortic stenosis. Aortic valve velocity: 113 cm/s LVOT velocity: 71.1 cm/s LVOT VTI: 15.9 cm Trace mitral regurgitation. Mitral E velocity: 64.3 cm/s Mitral A velocity: 45.0 cm/s Mitral deceleration time: 206 ms Very mild tricuspid regurgitation. Estimated right ventricle systolic pressure: 26-31 mmHg assuming a pressure of 5-10 mmHg. Trace pulmonic regurgitation. Pulmonary acceleration time: 119 ms MITRAL ANNULAR TISSUE DOPPLER: E prime septal: 8.6 cm/s E prime lateral: 9.0 cm/s DESCRIPTION: Rhythm was sinus bradycardia. Image quality was good. This was a 2D, M-mode, color flow Doppler and pulse wave Doppler examination and included mitral annular tissue Doppler. CONCLUSIONS: 1. Normal left ventricle internal dimensions and wall thickness. Mild lymphokinesis of the basal anteroseptal, basal inferoseptal, and mid inferoseptal LV segments with normal wall motion and wall thickening elsewhere. Mild reduction in overall LV systolic function. Estimated left ventricular ejection fraction (LVEF) 45% by visual assessment. Normal LV diastolic function. 2. Normal right ventricle size and systolic function. Suggestive of normal pulmonary artery systolic pressure and estimated right ventricle systolic pressure. Very mild tricuspid regurgitation, within normal limits. 3. No pericardial effusion. 4. Mild aortic valve sclerosis of a 3-cusp aortic valve. No aortic regurgitation. 5. Mild mitral annular calcification. Trace mitral regurgitation.
== END ==
LOC: M CARPUL 08:23
PROVIDERS: ATTEND Physician Assistant Medical
DX: I50.22 Chronic systolic (congestive) heart failure (principal)

== ENCOUNTER → 2020-07-23 | Outpatient (REF) | payer MEDICARE ==
[2020-07-23 11:43] LABS: BASO # 0.1 10^3/uL (0.0-0.2); BASO % 1.6 % (0.0-1.0); EOS # 0.3 10^3/uL (0.0-0.5); EOS % 6.5 % (0.0-3.0); HEMATOCRIT 40.1 % (42.0-52.0); HEMOGLOBIN 12.9 g/dl (13.5-17.5); LYMPH # 1.6 10^3/uL (1.5-5.0); LYMPH % 36.3 % (24.0-44.0); MEAN CORPUSCULAR HEMOGLOBIN 30.2 pg (27.0-33.0); MEAN CORPUSCULAR HGB CONC 32.2 g/dl (32.0-36.5); MEAN CORPUSCULAR VOLUME 93.9 fl (80.0-96.0); MONO # 0.8 10^3/uL (0.0-0.8); MONO % 19.2 % (0.0-5.0); NEUTROPHILS # 1.6 10^3/uL (1.5-8.5); NEUTROPHILS % 36.2 % (36.0-66.0); PLATELET COUNT, AUTOMATED 248 10^3/uL (150-450); RED BLOOD COUNT 4.27 10^6/uL (4.30-6.10); WHITE BLOOD COUNT 4.3 10^3/uL (4.0-10.0)
[2020-07-23 12:36] LABS: ALBUMIN 3.6 GM/DL (3.2-5.2); ALT/SGPT 33 U/L (12-78); BILIRUBIN,TOTAL 0.4 MG/DL (0.2-1.0); BLOOD UREA NITROGEN 29 MG/DL (7-18); CARBON DIOXIDE LEVEL 31 MEQ/L (21-32); CHLORIDE LEVEL 105 MEQ/L (98-107); CHOLESTEROL LEVEL 180 MG/DL (<200); CHOLESTEROL RISK RATIO 2.307 (<5); CREATININE FOR GFR 0.95 MG/DL (0.70-1.30); GLOMERULAR FILTRATION RATE > 60.0 (>42); GLUCOSE, FASTING 84 MG/DL (70-100); HDL CHOLESTEROL 78 MG/DL (>40); LDL CHOLESTEROL 96 MG/DL (<100); NON-HDL-C 102 MG/DL; POTASSIUM SERUM 4.6 MEQ/L (3.5-5.1); SODIUM LEVEL 139 MEQ/L (136-145); TOTAL 25(OH) VITAMIN D 37.7 NG/ML (30.0-100.0); TOTAL PROTEIN 7.1 GM/DL (6.4-8.2); TRIGLYCERIDES LEVEL 32 MG/DL (<150)
== END ==
LOC: M SFHCADAM 10:38
PROVIDERS: ATTEND Physician Assistant Medical
DX: I50.22 Chronic systolic (congestive) heart failure (principal); E03.9 Hypothyroidism, unspecified; E55.9 Vitamin D deficiency, unspecified

== ENCOUNTER → 2020-11-24 | Outpatient (REF) | payer MEDICARE | LOC: M LABSMT 09:47 → M SFHCADAM 09:49 | PROVIDERS: ATTEND Nurse Practitioner Family | DX: Z12.5 Encounter for screening for malignant neoplasm of prostate (principal) ==

== ENCOUNTER 2020-12-18 15:39 | Inpatient (IN) | payer MEDICARE ==
[~2020-12-18] VITALS: Ht 172.7 cm; Wt 71.0 kg
[2020-12-18] MEDS ORDERED: TAMS1CAP17 PO (15:46)
--- NOTE | 2020-12-18 16:33 | REP ---
INDICATION: tree fell on ankle COMPARISON: None. TECHNIQUE: Four views left ankle. FINDINGS: There is fracture of the medial malleolus which is mildly displaced distally. There is widening of the adjacent medial mortise. There is a metallic plate and multiple screws in the distal fibula. There is a nondisplaced fracture of the distal fibula. There is an associated fracture of the metallic side plate at that level. There is slight lateral angulation. The most superior 2 screws are fractured. Moderate joint effusion is seen at the tibiotalar joint. There is diffuse soft tissue swelling, most significantly medially. There is inferior calcaneal spurring and dorsal navicular spurring. There is mild linear calcification along the posterior calcaneus. I do not see a well-defined Achilles tendon in this region and injury to the Achilles cannot be excluded. Diffuse vascular calcifications are seen in the soft tissues. IMPRESSION: Mildly displaced fracture medial malleolus. Widening of the medial mortise. Nondisplaced fracture of distal fibula with associated fracture of metallic side plate at that level, with slight lateral angulation. The most superior 2 screws fixing the metallic side plate are fractured. The distal Achilles tendon on the lateral view cannot be visualized possibly due to obscuration from edema and a joint effusion, however, injury to the Achilles tendon cannot be excluded. <Electronically signed by Nitin Worley > 12/18/20 [id number]
--- NOTE | 2020-12-18 17:35 | REP ---
INDICATION: trauma COMPARISON: None. TECHNIQUE: AP and lateral views of the left tibia/fibula. FINDINGS: Visualized portions of the tibia and fibula are intact and without acute fracture or dislocation. Evidence for prior knee replacement noted and ORIF of the distal fibula. Vascular calcifications are identified. No subcutaneous emphysema or foreign body. IMPRESSION: . No acute fracture or dislocation. <Electronically signed by Drake Cruz > 12/18/20 [id number]
--- NOTE | 2020-12-18 17:37 | REP ---
INDICATION: trauma COMPARISON: None. TECHNIQUE: AP, lateral, bilateral oblique views . FINDINGS: There is no evidence for acute fracture or dislocation of the foot. However there appears to be old injury and presumed acute fracture dislocation at the ankle. Correlation is required.. IMPRESSION: Acute on chronic trauma at the ankle is suspected and requires further investigation.. <Electronically signed by Drake Cruz > 12/18/20 [id number]
--- NOTE | 2020-12-18 18:04 | REPVR ---
PROCEDURE INFORMATION: Exam: CT Left Lower Extremity Without Contrast, Ankle Exam date and time: 12/18/2020 5:12 PM Age: 75 years old Clinical indication: Injury or trauma; Other: Tree fell on left ankle; Crushing TECHNIQUE: Imaging protocol: CT of the Left lower extremity without contrast was performed. Exam focused on the ankle. Radiation optimization: All CT scans at this facility use at least one of these dose optimization techniques: automated exposure control; mA and/or kV adjustment per patient size (includes targeted exams where dose is matched to clinical indication); or iterative reconstruction. COMPARISON: CR Foot, complete 12/18/2020 5:09 PM FINDINGS: Exam is somewhat limited by knee arthroplasty hardware. I do not see evidence of an acute periprosthetic fracture or loosening of the hardware components. Fibular fixation plate and screws are present with a healed distal fibular fracture present. Screw tract from a prior syndesmotic screw is present. 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 Diffuse soft tissue swelling involving the lower leg and ankle particularly on the medial side. Transverse fracture involving the medial malleolus base is present, with distraction measuring 2 mm and with ossification in the intervening plane. Indeterminate age. There is also heterotopic bone formation involving the distal syndesmosis, and there is an anterior inferior corner fracture of the lateral distal tibial plafond at the syndesmosis attachment level. IMPRESSION: Old posttraumatic and postsurgical changes of the ankle, with diffuse soft tissue swelling and suggestion of possibly acute medial malleolus base and anterolateral tibial plafond syndesmotic avulsion fracture. Electronically signed by: Asad Menjivar On 12/18/2020 18:04:25 PM
--- NOTE | 2020-12-18 18:07 | REPVR ---
PROCEDURE INFORMATION: Exam: CT Left Lower Extremity Without Contrast, Ankle Exam date and time: 12/18/2020 5:12 PM Age: 75 years old Clinical indication: Injury or trauma; Other: Tree fell on left ankle; Crushing TECHNIQUE: Imaging protocol: CT of the Left lower extremity without contrast was performed. Exam focused on the ankle. Radiation optimization: All CT scans at this facility use at least one of these dose optimization techniques: automated exposure control; mA and/or kV adjustment per patient size (includes targeted exams where dose is matched to clinical indication); or iterative reconstruction. COMPARISON: CR Foot, complete 12/18/2020 5:09 PM FINDINGS: Soft tissue swelling is present involving the medial and lateral aspects of the ankle. No soft tissue defect. Age indeterminate anterior inferior distal tibial avulsion fracture measuring 6 x 3 mm at the level of the anterior distal syndesmosis attachment, and age indeterminate medial malleolus base fracture, distracted by 3 mm. Widening of the medial ankle mortise to 1 cm suggests ligamentous disruption. Underlying old posttraumatic and postsurgical changes of the ankle. No evidence of a midfoot fracture or Lisfranc joint malalignment. Metatarsals and phalanges show no fracture deformities. Degenerative changes are seen in the great toe articulations without evidence of erosive arthropathy IMPRESSION: Diffuse ankle soft tissue swelling. Small [id number] ankle images confirm an acute appearing medial malleolus base fracture and anterolateral distal tibial plafond fracture at the syndesmosis attachment, with widening of the medial ankle mortise to 1 cm diameter , suggesting ankle instability Electronically signed by: Asad Menjivar On 12/18/2020 18:07:34 PM
[2020-12-18 18:26] LABS: BASO # 0.1 10^3/uL (0.0-0.2); BASO % 0.7 % (0.0-1.0); EOS # 0.1 10^3/uL (0.0-0.5); EOS % 0.6 % (0.0-3.0); HEMATOCRIT 37.9 % (42.0-52.0); HEMOGLOBIN 12.4 g/dl (13.5-17.5); LYMPH % 9.9 % (24.0-44.0); MEAN CORPUSCULAR HEMOGLOBIN 30.2 pg (27.0-33.0); MEAN CORPUSCULAR HGB CONC 32.7 g/dl (32.0-36.5); MEAN CORPUSCULAR VOLUME 92.2 fl (80.0-96.0); MONO # 0.7 10^3/uL (0.0-0.8); MONO % 7.2 % (2.0-8.0); NEUTROPHILS # 7.8 10^3/uL (1.5-8.5); NEUTROPHILS % 81.4 % (36.0-66.0); RED BLOOD COUNT 4.11 10^6/uL (4.30-6.10); WHITE BLOOD COUNT 9.6 10^3/uL (4.0-10.0)
[2020-12-18 18:57] LABS: ALBUMIN 3.8 GM/DL (3.2-5.2); ALT/SGPT 38 U/L (12-78); BILIRUBIN,DIRECT < 0.1 MG/DL (0.0-0.2); BILIRUBIN,TOTAL 0.3 MG/DL (0.2-1.0); BLOOD UREA NITROGEN 33 MG/DL (7-18); CALCIUM LEVEL 9.2 MG/DL (8.8-10.2); CARBON DIOXIDE LEVEL 27 MEQ/L (21-32); CHLORIDE LEVEL 107 MEQ/L (98-107); CREATININE FOR GFR 0.85 MG/DL (0.70-1.30); FREE T3 2.4 PG/ML (2.2-4.0); FREE T4 0.98 NG/DL (0.76-1.46); GLOMERULAR FILTRATION RATE > 60.0 (>42); GLUCOSE, FASTING 92 MG/DL (70-100); POTASSIUM SERUM 4.4 MEQ/L (3.5-5.1); SODIUM LEVEL 139 MEQ/L (136-145); TOTAL PROTEIN 7.3 GM/DL (6.4-8.2)
[2020-12-18] MEDS ORDERED: NS 500 ML IV ONE (20:05)
--- NOTE | 2020-12-18 20:40 | REPVR ---
PROCEDURE INFORMATION: Exam: XR Left Forearm Exam date and time: 12/18/2020 8:01 PM Age: 75 years old Clinical indication: Other: Swelling/trauma; Additional info: Swelling /trauma TECHNIQUE: Imaging protocol: XR Left forearm. Views: 2 views. COMPARISON: No relevant prior studies available. FINDINGS: Bones/joints: Bones are aligned normally. No fracture, bone lesion or osteochondral abnormality. Old posttraumatic change of the distal ulna with dystrophic ossification Joint spaces of the elbow and wrist are maintained. Soft tissues: Mild diffuse soft tissue swelling over the mid forearm. No opaque foreign body. IMPRESSION: 1. No evidence of fracture, osseous malalignment or soft tissue defect. 2. Nonspecific mid forearm soft tissue swelling Electronically signed by: Asad Menjivar On 12/18/2020 20:40:08 PM
[2020-12-18 21:19] LABS: INR 1.11; PROTHROMBIN TIME 14.5 SECONDS (12.5-14.3)
[2020-12-18 21:20] LABS: PARTIAL THROMBOPLASTIN TIME 28.5 SECONDS (24.2-38.5)
[2020-12-18] MEDS ORDERED: MORPHINE 4 MG/ML 1ML VIAL/SYRINGE (J2270) IV ONE (21:30)
[2020-12-19] MEDS ORDERED: D31000TA2 PO (00:44)
[2020-12-19] MEDS ORDERED: ACETAMINOPHEN TAB 650MG DOSE (2X325MG) PO PRN (00:45)
[2020-12-19] MEDS ORDERED: MOM 30ML SUSPENSION UDC PO PRN (00:45)
[2020-12-19] MEDS ORDERED: MAALOX 30 ML SUSP *UDC PO PRN (00:45)
--- NOTE | 2020-12-19 00:48 | HPEPDOC ---
[facility] Medical History & Physical Date of Admission December 19, 2020 Date of Service: December 19, 2020 History and Physical CHIEF COMPLAINT: L ankle trauma HISTORY OF PRESENT ILLNESS: 75 yo M with a PMHx of hypothyroidism and BPH, pr esented to [facility] ER after sustaining trauma to the L ankle, after a tree landed on [place] Ankle imaging showing. Patient also sustained injury to the L arm without fracture. Patient denies chest pain, SOB, palpitations, fevers, chills. Will be admitted for pain control, DVT ppx. Orthopedic surgery consulted, plan for ORIF on 12/20/20. PAST MEDICAL HISTORY: Hypothyroid BPH iron deficiency anemia vitamin D deficiency PAST SURGICAL HISTORY: L knee arthroplasty R knee arthroplasty R shoulder replacement L ankle fracture SOCIAL HISTORY: denies smoking denies etoh denies illicit drug use FAMILY HISTORY: Father: , 89, DM. Mother: , 88, sepsis, heart disease. Siblings: - Sisters: x2, alive, 66 and 70, healthy. Children: x4, alive and healthy. ALLERGIES: Please see below. REVIEW OF SYSTEMS: 10 point ROS was conducted, relevant findings are noted in the HPI. HOME MEDICATIONS: Please see below. PHYSICAL EXAMINATION: VITAL SIGNS: please see below GENERAL APPEARANCE: comfortable, non toxic appearing. HEENT: PERRLA, EOMI. CARDIOVASCULAR: RRR, normal S1, S2. LUNGS: CTAB, no wheeze, no rales. ABDOMEN: soft, non tender, non distended. MUSCULOSKELETAL: L ankle casted, moving toes. L arm ecchymosis, pulses intact. NEUROLOGICAL: AAO x 3, pleasant, cooperative LABORATORY DATA: See below. IMAGING: CT left foot (12/18/20): Diffuse ankle soft tissue swelling. Small [id number] ankle images confirm an acute appearing medial malleolus base fracture and anterolateral distal tibial plafond fracture at the syndesmosis attachment, with widening of the medial ankle mortise to 1 cm diameter , suggesting ankle instability CT L tibia/fibula (12/18/20): Old posttraumatic and postsurgical changes of the ankle, with diffuse soft tissue swelling and suggestion of possibly acute medial malleolus base and anterolateral tibial plafond syndesmotic avulsion fracture. XR L tibia/fibula (12/18/20): No acute fracture or dislocation. L radius/ulna XR (12/18/20): 1. No evidence of fracture, osseous malalignment or soft tissue defect. 2. Nonspecific mid forearm soft tissue swelling MICROBIOLOGY: Please see below. ASSESSMENT: 75 yo M with a PMHX of hypothyroidism and BPH, being admitted for acute L ankle fracture after trauma from tree fall on LLE. Imaging showing medial malleolar bas fx and anterolateral distal tibial plafond fracture at syndesmosis attachment. Evaluated by orthopedic surgery, Dr. Atkins, planned for ORIF on 12/20/20. . PLAN: L acute ankle fracture - involving medial malleolus, anterolateral distal tibial plafond with prior hardware detachment - seen by Dr. Atkins, planned for ORIF on 12/20/20 - pain control with morphine for breakthrough, percocet - DVT ppx with lovenox - PT/OT post op Hypothyroid - resume home dose levothyroxine BPH - resume home tamsulosin and proscar Iron deficiency anemia - resume iron - PCP referral for colonoscopy DVT ppx: lovenox Dispo: pending clinical improvement Vital Signs Vital Signs Date Time Temp Pulse Resp B/P (MAP) Pulse Ox O2 Delivery O2 Flow Rate FiO2 12/19/20 00:31 69 98 12/19/20 00:30 14 119/73 (88) Room Air 12/18/20 15:40 97.4 Laboratory Data Labs 24H Laboratory Tests 2 12/18/20 17:15: Immature Granulocyte % (Auto) 0.2, Neutrophils (%) (Auto) 81.4H, Lymphocytes (%) (Auto) 9.9L, Monocytes (%) (Auto) 7.2, Eosinophils (%) (Auto) 0.6, Basophils (%) (Auto) 0.7, Neutrophils # (Auto) 7.8, Lymphocytes # (Auto) 1.0L, Monocytes # (A uto) 0.7, Eosinophils # (Auto) 0.1, Basophils # (Auto) 0.1, Nucleated Red Blood Cells % (auto) 0.0 12/18/20 17:18: Anion Gap 5L, Glomerular Filtration Rate > 60.0, Calcium Level 9.2, Total Bilirubin 0.3, Direct Bilirubin < 0.1, Aspartate Amino Transf (AST/SGOT) 35, Alanine Aminotransferase (ALT/SGPT) 38, Alkaline Phosphatase 85, Total Protein 7.3, Albumin 3.8, Albumin/Globulin Ratio 1.1, Thyroid Stimulating Hormone (TSH) 3.850H, Free Thyroxine 0.98, Free Triiodothyronine 2.4 12/18/20 17:38: Coronavirus (COVID-19)(PCR) NEGATIVE 12/18/20 20:56: Prothrombin Time 14.5H, Prothromb Time International Ratio 1.11, Activated Partial Thromboplast Time 28.5 CBC/BMP Laboratory Tests 12/18/20 17:15 12/18/20 17:18 Home Medications Scheduled Cholecalciferol (Vitamin D3) (Vitamin D3) 1,000 Unit Tablet, 5,000 UNITS PO DAILY Ferrous Sulfate (Ferrous Sulfate) 325 Mg Tablet.dr, 325 MG PO DAILY Finasteride (Proscar) 5 Mg Tab, 5 MG PO DAILY Levothyroxine Sodium (Levothyroxine Sodium) 88 Mcg Tab, 88 MCG PO DAILY Tamsulosin Hcl (Tamsulosin HCl) 0.4 Mg Capsule, 0.4 MG PO DA Allergies Coded Allergies: No Known Allergies (Unverified , 01/15/19) A-FIB/CHADSVASC A-FIB History Current/History of A-Fib/PAF?: No Current PO Anticoag Therapy: No ZAHRAA KUMAR MD December 19, 2020 00:48
[2020-12-19] MEDS: PERCOCET 5MG/325MG TAB PO PRN ×4 (01:45→19:19)
[2020-12-19 02:22] VITALS: BP 128/79
[2020-12-19 02:23] VITALS: BP 127/72
[2020-12-19] MEDS: MORPHINE 2 MG/ML 1ML VIAL (J2270) IV PRN (05:25)
[2020-12-19] MEDS: LEVOTHYROXINE 88MCG TABLET (0.088 MG) PO SCH (05:25)
[2020-12-19 05:27] VITALS: BP 122/79
[2020-12-19 07:22] LABS: BASO # 0.1 10^3/uL (0.0-0.2); EOS # 0.1 10^3/uL (0.0-0.5); EOS % 1.4 % (0.0-3.0); HEMATOCRIT 33.9 % (42.0-52.0); HEMOGLOBIN 10.9 g/dl (13.5-17.5); LYMPH % 15.3 % (24.0-44.0); MEAN CORPUSCULAR HEMOGLOBIN 29.8 pg (27.0-33.0); MEAN CORPUSCULAR HGB CONC 32.2 g/dl (32.0-36.5); MEAN CORPUSCULAR VOLUME 92.6 fl (80.0-96.0); MONO # 0.9 10^3/uL (0.0-0.8); NEUTROPHILS # 4.2 10^3/uL (1.5-8.5); PLATELET COUNT, AUTOMATED 211 10^3/uL (150-450); RED BLOOD COUNT 3.66 10^6/uL (4.30-6.10); WHITE BLOOD COUNT 6.2 10^3/uL (4.0-10.0)
[2020-12-19 07:37] LABS: ALBUMIN 3.2 GM/DL (3.2-5.2); ALT/SGPT 29 U/L (12-78); BILIRUBIN,TOTAL 0.5 MG/DL (0.2-1.0); BLOOD UREA NITROGEN 29 MG/DL (7-18); CALCIUM LEVEL 8.1 MG/DL (8.8-10.2); CARBON DIOXIDE LEVEL 29 MEQ/L (21-32); CHLORIDE LEVEL 107 MEQ/L (98-107); GLOMERULAR FILTRATION RATE > 60.0 (>42); GLUCOSE, FASTING 92 MG/DL (70-100); MAGNESIUM LEVEL 2.2 MG/DL (1.8-2.4); POTASSIUM SERUM 4.1 MEQ/L (3.5-5.1); SODIUM LEVEL 140 MEQ/L (136-145); TOTAL PROTEIN 6.3 GM/DL (6.4-8.2)
--- NOTE | 2020-12-19 08:08 | REP ---
INDICATION: exam under stress COMPARISON: 12/18/2020 TECHNIQUE: Intraoperative fluoroscopic imaging using portable C-arm technique. FINDINGS: Diffuse soft tissue swelling is appreciated along with acute medial malleolar fracture and mild associated widening to the ankle mortise/tibiotalar joint. Total fluoroscopic time 31.3 seconds. IMPRESSION: Acute medial malleolar fracture. <Electronically signed by Drake Cruz > 12/19/20 0804
[2020-12-19 08:14] LABS: RSV AMPLIFICATION NEGATIVE (NEGATIVE)
[2020-12-19] MEDS: ENOXAPARIN 40MG/0.4ML SYRINGE (J1650 PER 10MG) SC SCH (09:00)
[2020-12-19] MEDS: DOCUSATE SODIUM 100MG CAPSULE PO SCH ×2 (09:47→20:37)
[2020-12-19] MEDS: VITAMIN D 1,000 INTERNATIONAL UNITS TABLET PO SCH (09:47)
[2020-12-19] MEDS: TAMSULOSIN 0.4 MG CAP PO SCH (09:47)
[2020-12-19] MEDS: FERROUS SULFATE 325MG TAB PO SCH (09:47)
[2020-12-19] MEDS: FINASTERIDE 5 MG TAB PO SCH (09:47)
[2020-12-19 14:00] VITALS: BP 120/78
--- NOTE | 2020-12-19 15:15 | ER ---
ER CONSULTATION DATE: 12/19/2020 TIME: 12:05 a.m. CONSULTING SERVICE: Orthopedic surgery. CONSULTING PHYSICIAN: Mitesh Atkins M.D. HISTORY OF PRESENT ILLNESS: This is a 75-year-old, previous community ambulator, with a left ankle fracture. This is a closed injury patient sustained while performing yard work. A large tree with a 50 inch diameter trunk fell onto his left leg and patient sustained a left ankle fracture. Of note, patient did have a left fibula open reduction internal fixation 20 years prior and the patient had what appeared to be a nonunion of the left fibula fracture, which caused weakness of the fibula, causing it to break. The fibula hardware also failed during this injury. The patient also has a medial malleolar fracture, which is acute and a syndesmotic destruction. Orthopedic surgery was consulted for further evaluation and treatment and patient was examined at bedside, underwent a dynamic stress view of the ankle, which confirmed instability of the ankle. He was reduced and then placed in a well-padded L and U splint. PAST MEDICAL HISTORY: 1. Benign prostatic hypertrophy. 2. Hypothyroidism. PAST SURGICAL HISTORY: 1. Bilateral total knee replacement. 2. Right shoulder hemiarthroplasty. 3. Right ankle open reduction internal fixation. 4. Bilateral carpal tunnel release. 5. Cataract surgery. ALLERGIES: Patient denies. MEDICATIONS: Include: - Flomax - finasteride. SOCIAL HISTORY: Patient is a nondrinker, nonsmoker, non-intravenous (IV) drug user. REVIEW OF SYSTEMS: A 14 point review of systems was negative unless otherwise described in the history of present illness (HPI) above. PHYSICAL EXAMINATION: Patient is alert and oriented to person, time and place. LEFT LOWER EXTREMITY: Patient had bruising above the medial aspect of the ankle. He had minimal swelling of the left ankle, primarily on the medial side. He had 5/5 motor strength to the exterior hallucis longus (EHL), flexor hallucis longus (FHL), tibialis, anterior gastrocnemius, and perineal musculature. He had sensation intact to light touch to the deep and superficial peroneal, sural, saphenous and tibial nerve distributions. He had 2+ dorsalis pedis and posterior tibial arterial pulse. Brisk capillary refill to the digits. No breaks to the skin. 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 Patient's fibula plate has failed. Patient has loose hardware and left edema. He has an acute medial malleolar avulsion fracture and a disrupted syndesmoses based on tibia/fibula clear space and under dynamic external rotation dorsiflexion views the talus translated laterally. CT scan confirms the above findings. IMPRESSION: A 75-year-old male with a left ankle fracture, failed hardware of the fibula requiring left ankle open reduction internal fixation. PLAN: Given the patient's health and previous ambulatory status, as well as his radiographic and dynamic fluoroscopic views, I believe the patient would benefit from left ankle open reduction internal fixation to stabilize his ankle and remove his previous hardware. Patient has indicated for a left open reduction internal fixation, times and space available.
[2020-12-19 20:00] VITALS: BP 100/68
[2020-12-20] MEDS: MORPHINE 2 MG/ML 1ML VIAL (J2270) IV PRN ×2 (00:49→05:25)
[2020-12-20] MEDS ORDERED: NS 1,000 ML IV ONE (04:00)
[2020-12-20 06:00] VITALS: BP 113/66
[2020-12-20] MEDS: LEVOTHYROXINE 88MCG TABLET (0.088 MG) PO SCH (06:36)
[2020-12-20] MEDS: ENOXAPARIN 40MG/0.4ML SYRINGE (J1650 PER 10MG) SC SCH (07:47)
[2020-12-20 07:57] LABS: HEMATOCRIT 34.5 % (42.0-52.0); HEMOGLOBIN 11.2 g/dl (13.5-17.5); MEAN CORPUSCULAR HEMOGLOBIN 30.5 pg (27.0-33.0); MEAN CORPUSCULAR HGB CONC 32.5 g/dl (32.0-36.5); PLATELET COUNT, AUTOMATED 210 10^3/uL (150-450); RED BLOOD COUNT 3.67 10^6/uL (4.30-6.10); WHITE BLOOD COUNT 6.8 10^3/uL (4.0-10.0)
[2020-12-20 08:24] LABS: BLOOD UREA NITROGEN 33 MG/DL (7-18); CALCIUM LEVEL 8.2 MG/DL (8.8-10.2); CARBON DIOXIDE LEVEL 27 MEQ/L (21-32); CHLORIDE LEVEL 106 MEQ/L (98-107); CREATININE FOR GFR 0.84 MG/DL (0.70-1.30); GLOMERULAR FILTRATION RATE > 60.0 (>42); GLUCOSE, FASTING 75 MG/DL (70-100); SODIUM LEVEL 139 MEQ/L (136-145)
[2020-12-20] MEDS: FERROUS SULFATE 325MG TAB PO SCH (09:08)
[2020-12-20] MEDS: DOCUSATE SODIUM 100MG CAPSULE PO SCH (09:08)
[2020-12-20] MEDS: VITAMIN D 1,000 INTERNATIONAL UNITS TABLET PO SCH (09:08)
[2020-12-20] MEDS: TAMSULOSIN 0.4 MG CAP PO SCH (09:08)
[2020-12-20] MEDS: FINASTERIDE 5 MG TAB PO SCH (09:08)
[2020-12-20] MEDS ORDERED: ECOT81TA5 PO (10:39)
[2020-12-20] MEDS ORDERED: PERCOCET PO (10:39)
[2020-12-20] MEDS: PERCOCET 5MG/325MG TAB PO PRN (11:44)
--- NOTE | 2020-12-20 13:37 | DS.PDOC ---
Discharge Summary General Date of Admission December 19, 2020 at 00:43 Date of Discharge 12/20/20 Discharge Summary PROCEDURES PERFORMED DURING STAY: [None]. ADMITTING DIAGNOSES: #left ankle fracture DISCHARGE DIAGNOSES: Hypothyroid BPH iron deficiency anemia vitamin D deficiency COMPLICATIONS/CHIEF COMPLAINT: Closed L Ankle Fracture. HISTORY OF PRESENT ILLNESS: 75 yo M with a PMHx of hypothyroidism and BPH, presented to [facility] ER after sustaining trauma to the L ankle, after a tree landed on his LLE [place]. Ankle imaging showing. Patient also sustained injury to the L arm without fracture. Patient denies chest pain, SOB, palpitations, fevers, chills. Will be admitted for pain control, DVT ppx. Orthopedic surgery consulted, plan for ORIF on 12/20/20. HOSPITAL COURSE: Patient was admitted for further evaluation and treatment by orthopedics. His surgery was postponed to December 29 by orthopedics with further recommendations for discharge home with aspirin therapy until December 25 and surgical intervention on December 29. Hospital stay was otherwise unremarkable. DISCHARGE MEDICATIONS: Please see below. ALLERGIES: Please see below. PHYSICAL EXAMINATION ON DISCHARGE: VITAL SIGNS: please see below GENERAL APPEARANCE: comfortable, non toxic appearing. HEENT: PERRLA, EOMI. CARDIOVASCULAR: RRR, normal S1, S2. LUNGS: CTAB, no wheeze, no rales. ABDOMEN: soft, non tender, non distended. MUSCULOSKELETAL: L ankle casted, moving toes. L arm ecchymosis, pulses intact. NEUROLOGICAL: AAO x 3, pleasant, cooperative LABORATORY DATA: Please see below. ACTIVITY: [As tolerated]. DISPOSITION: 01 Home, Self-Care. DISCHARGE INSTRUCTIONS: 1. Follow up with PCP in 3-5 days. 2. Follow up with orthopedics as directed. 3. Activity as per PT and ortho. DISCHARGE CONDITION: [Stable]. TIME SPENT ON DISCHARGE: 35 minutes. Vital Signs/I&Os Vital Signs Date Time Temp Pulse Resp B/P (MAP) Pulse Ox O2 Delivery O2 Flow Rate FiO2 12/20/20 11:44 16 12/20/20 06:00 98.9 61 113/66 (82) 94 Room Air I&O- Last 24 Hours up to 6 AM 12/20/20 06:00 Intake Total 240 ml Output Total 600 ml Balance -360 ml Laboratory Data Labs 24H Laboratory Tests 2 12/20/20 07:18: Nucleated Red Blood Cells % (auto) 0.0, Anion Gap 6L, Glomerular Filtration Rate > 60.0, Calcium Level 8.2L CBC/BMP Laboratory Tests 12/20/20 07:18 Discharge Medications Scheduled Aspirin (Ecotrin) 81 Mg Tablet.dr, 1 TAB PO DAILY for pain last dose on 12/25/2020 Cholecalciferol (Vitamin D3) (Vitamin D3) 1,000 Unit Tablet, 5,000 UNITS PO DAILY, (Reported) Ferrous Sulfate (Ferrous Sulfate) 325 Mg Tablet.dr, 325 MG PO DAILY, (Reported) Finasteride (Proscar) 5 Mg Tab, 5 MG PO DAILY, (Reported) Levothyroxine Sodium (Levothyroxine Sodium) 88 Mcg Tab, 88 MCG PO DAILY, (Reported) Tamsulosin Hcl (Tamsulosin HCl) 0.4 Mg Capsule, 0.4 MG PO DA, (Reported) Scheduled PRN Oxycodone/Acetaminophen (Oxycodone-Acetaminophen 5-325) 1 Each Tablet, 1 TAB PO Q6HP PRN for MODERATE PAIN (PS 5-7) Allergies Coded Allergies: No Known Allergies (Unverified , 01/15/19) STEVAN DELGADO MD December 20, 2020 13:37
== END 2020-12-20 12:35 | disposition home or self-care (01) | DRG 563 ==
LOC: M ED 15:39 → M ED INP 12-19 00:43 → ENRESERV 12-19 01:17 → M MS5PR 12-19 02:17
PROVIDERS: ADMIT Family Medicine; ATTEND Internal Medicine
DX: S82.52XA Displaced fracture of medial malleolus of left tibia, initial encounter for closed fracture (principal); S82.62XA Displaced fracture of lateral malleolus of left fibula, initial encounter for closed fracture; E03.9 Hypothyroidism, unspecified; N40.0 Benign prostatic hyperplasia without lower urinary tract symptoms; D50.9 Iron deficiency anemia, unspecified; E55.9 Vitamin D deficiency, unspecified; W20.8XXA Other cause of strike by thrown, projected or falling object, initial encounter; Y92.009 Unspecified place in unspecified non-institutional (private) residence as the place of occurrence of the external cause; Z79.82 Long term (current) use of aspirin; Z79.899 Other long term (current) drug therapy

== ENCOUNTER → 2020-12-24 | Outpatient (CLI) | payer MEDICARE ==
[~2020-12-24] MED LIST changes: +D31000TA2 PO; +ECOT81TA5 PO; +PERCOCET PO; +TAMS1CAP17 PO
== END ==
LOC: M LABSMTC 13:59
PROVIDERS: ATTEND Anesthesiology
DX: Z01.812 Encounter for preprocedural laboratory examination (principal)

== ENCOUNTER 2020-12-29 13:38 | Day surgery (SDC) | payer MEDICARE ==
[~2020-12-29] VITALS: Ht 172.7 cm; Wt 68.5 kg
[~2020-12-29 13:38] MED LIST changes: +LR 1,000 ML IV ONE; +MIDAZOLAM INJ 2MG/2ML VIAL (J2250 PER 1MG) IV PRN; +fentaNYL 100 MCG/2 ML INJECTION (J3010) IV PRN
[2020-12-29] MEDS ORDERED: propofoL 200 MG/20 ML VIAL As Ordered ONE (14:52)
[2020-12-29] MEDS ORDERED: ROCURONIUM BROMIDE 50 MG/5 ML VIAL As Ordered ONE ×3 (14:52→20:28)
[2020-12-29] MEDS ORDERED: LIDOCAINE 2% 100MG/5ML SDV (FOR ANES.) As Ordered ONE (14:52)
[2020-12-29] MEDS ORDERED: MIDAZOLAM INJ 2MG/2ML VIAL (J2250 PER 1MG) As Ordered ONE (14:53)
[2020-12-29] MEDS ORDERED: fentaNYL 100 MCG/2 ML INJECTION (J3010) As Ordered ONE ×3 (14:53→21:05)
--- NOTE | 2020-12-29 15:11 | ECGEPIP ---
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 : 1945 Requested By: EMMANUEL Dela Cruz Order Number: [id number] Reading MD: Jae Castle Measurements Intervals Stokes Rate: 56 P: 49 DC: 154 QRS: 34 QRSD: 88 T: 39 QT: 428 QTc: 413 Interpretive Statements Sinus bradycardia with sinus arrhythmia, PAC 1. Minor nonspecific ST-T abnormality. No significant change compared with 01/16/2019. Electronically Signed on 12-29-2020 15:11:26 EDT by Jae Castle
[2020-12-29] MEDS ORDERED: dexameTHASONE 10MG/1ML VIAL PRES.FREE (J1100 PER 1MG) XX ONE (15:50)
[2020-12-29] MEDS ORDERED: LIDOCAINE 1% MDV 20ML VIAL XX ONE (15:50)
[2020-12-29] MEDS ORDERED: BUPIVACAINE HCL 0.5% 30 ML VIAL XX ONE (15:50)
[2020-12-29] MEDS ORDERED: TRANEXAMIC ACID 100 MG/ML 10ML VIAL As Ordered ONE (15:51)
[2020-12-29] MEDS ORDERED: ceFAZolin 2 GM/D5W 50 ML IV BAG (J0690 PER 500MG) As Ordered ONE ×2 (15:51→20:50)
[2020-12-29] MEDS ORDERED: ePHEDrine SULFATE 25 MG/5 ML(5MG/ML) SYRINGE As Ordered ONE (16:39)
[2020-12-29] MEDS ORDERED: METOCLOPRAMIDE INJ 10MG/2ML VIAL (J2765 PER 1) As Ordered ONE (16:39)
[2020-12-29] MEDS ORDERED: PHENYLephrine 500MCG 5ML (100MCG/ML) SYRINGE As Ordered ONE (16:39)
[2020-12-29] MEDS ORDERED: dexameTHASONE 4 MG/ML 1ML VIAL (J1100 PER 1MG) As Ordered ONE (16:39)
[2020-12-29] MEDS ORDERED: ONDANSETRON 4MG/2ML VIAL As Ordered ONE (16:39)
[2020-12-29] MEDS ORDERED: ACETAMINOPHEN 1000MG 100ML IV BTL (OFIRMEV) (J0131 PER 10MG) As Ordered ONE (16:48)
[2020-12-29] MEDS ORDERED: SEVOFLURANE INHAL SOLN 250 ML BTL As Ordered ONE (18:30)
[2020-12-29] MEDS ORDERED: PHENYLEPHRINE 10MG/ML 1ML VIAL (J2370 PER 1) As Ordered ONE (19:53)
[2020-12-29] MEDS ORDERED: SUGAMMADEX SODIUM 500 MG/5 ML VIAL (BRIDION) As Ordered ONE (20:31)
[2020-12-29] MEDS ORDERED: oxyCODONE 5MG TAB PO PRN (21:30)
[2020-12-29] MEDS ORDERED: HYDROMORPHONE HCL 0.5 MG/ 0.5 ML SYRINGE (J1170 PER 1) IV PRN (21:30)
[2020-12-29] MEDS ORDERED: fentaNYL 100 MCG/2 ML INJECTION (J3010) IV PRN (21:30)
[2020-12-29] MEDS ORDERED: ONDANSETRON 4MG/2ML VIAL IV PRN (21:30)
[2020-12-29] MEDS ORDERED: LR 1,000 ML IV SCH (21:30)
[2020-12-29] MEDS ORDERED: DESFLURANE 240 ML INHALANT As Ordered ONE (21:33)
[2020-12-29] MEDS ORDERED: PERCOCET 5MG/325MG TAB PO PRN ×2 (22:15)
[2020-12-29 22:40] VITALS: BP 105/66
[2020-12-29 23:10] VITALS: BP 107/66
[2020-12-29 23:40] VITALS: BP 109/66
[2020-12-30 00:40] VITALS: BP 114/69
[2020-12-30 01:40] VITALS: BP 121/68
[2020-12-30 06:00] VITALS: BP 125/92
--- NOTE | 2020-12-30 07:59 | RO ---
OPERATIVE NOTE DATE OF OPERATION: 12/29/2020 TIME: 5 p.m. PREOPERATIVE DIAGNOSIS: 1. Left Lloyd C ankle fracture. 2. Fractured hardware. 3. Loose hardware. 4. Syndesmotic disruption. 5. Medial malleolar fracture and medial deltoid disruption. POSTOPERATIVE DIAGNOSIS: 1. Left Lloyd C ankle fracture. 2. Fractured hardware. 3. Loose hardware. 4. Syndesmotic disruption. 5. Medial malleolar fracture and medial deltoid disruption. NAME OF OPERATION: Left ankle open reduction and internal fixation. Medial deltoid ligament repair. Syndesmotic repair. Hardware removal. Bone grafting. Nonunion, osteoclasis. 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 INDICATIONS: This was a 75-year-old male who sustained a ground-level fall while hiking one week prior. The patient presented to the [facility] for left ankle pain, inability to bear weight. He was indicated for the aforementioned procedure. This included a left ankle open reduction and internal fixation and syndesmotic repair, nonunion takedown, bone grafting, medial malleolus and bulging fracture fixation, medial deltoid ligament repair, syndesmotic repair. ANESTHESIA: GETA. TOURNIQUET TIME: 120 minutes followed by a one hour tourniquet holiday followed by 60 minutes of tourniquet time. IV FLUIDS: Please see anesthesia report. ESTIMATED BLOOD LOSS: 100 mL. IV ANTIBIOTICS: 3 grams of Ancef, 4 hour holiday, 2 gm of Ancef, 1 gm of TXA. CULTURES: Left fibula bone culture. SPECIMENS: Bone culture as described above. IMPLANTS: Synthes [employer]ite[employer]. DESCRIPTION OF PROCEDURE: The patient was met in the preoperative holding area where the patient's operative extremity was signed, the patient's consent was confirmed to be correct, and the patient's identity was confirmed to be correct. The patient was then transported to the operating theater where he was placed supine in a regular surgical bed with a radiolucent flat-top extension. A safety strap secured the patient to the bed. All bony prominences were well padded. The contralateral lower extremity had an SCD placed. A timeout was called. This confirmed the correct patient, correct operative extremity and correct consent. All staff were in agreement. The patient was then draped in the usual sterile fashion. We began the procedure by marking out our surgical landmarks using fluoroscopy to guide us. I then made a longitudinal incision starting at the distal fibula proximal and in line with the fibula to the most proximal end of the previously placed plate. I incised the skin sharply, used meticulous hemostasis and dissected down to the fibula using a hemostat, electrocautery and a periosteal rdz. Once down to the plate, I then used an osteotome to remove healed bone surrounding the plate. I removed all the either screw heads or attached screws. I then used an osteotome to remove the healed bone surrounding the previously placed 1/3 tubular plate. I then removed the plate. I then used a rongeur to smooth out the roughened edges of the bone. I then performed an osteoclasis of the nonunion using osteotomes. I then identified the fracture which was distal to the fractured hardware and nonunion. This was cleaned using a scalpel. I then placed a lag screw through the fibular fracture. At the nonunion site after performing an osteoclasis, I reestablished the fibular canal using a 2.0 drill bit to stimulate bleeding. The ends were roughened and compression through the nonunion site would be later applied to the plate. At this point in time after placement of my lag screw through the distal fibular fracture which would be a Lloyd C fracture, I then placed a long distal locking fibular plate. This was secured using olive wires. I then secured the distal end of the plate using a cortical screw to suck the plate to the bone. I placed five additional locking screws, removing the cortical screw and replacing it with one of the distal locking screws. Once the distal end of the plate was secured, I then took fluoroscopic images that demonstrated I was satisfied with the nonunion reduction, the distal fibular fracture reduction with the lag screw placement and a hardware placement. I then turned my attention to the proximal end of the plate and placed three cortical screws to suck the plate to the bone. I placed one additional proximal locking screw into the plate in order to increase the rigidity of the plate. At this point in time, it appeared that my lag screw had fractured through the previously placed lag hole so this was then removed. At this point in time, we had placed a bridging plate over both the nonunion which had been compressed using an internal compression device as well as the Lloyd C fibular fracture. I was satisfied with both the plate placement as well as the fracture reduction as we had reestablished the fibular alignment as it had previously had malalignment given the nonunion fracture and fractured hardware. We had restored the length of the fibula. At this point in time I turned my attention to the medial malleolus, made a small one inch incision overlying the medial malleolus. There was a very small avulsion fracture of the medial malleolus. However, the avulsed bone fragment contained the majority of the medial deltoid ligament. Instead of placing cortical fixation through the medial malleolus avulsion fracture, I placed a suture anchor and repaired medial ligament into its [place] position. This would ensure eversion stability of the ankle. I then turned my attention to the lateral fibula once more. At this point in time, I placed a potential cortical suspensory fixation into place in order to provisionally reduce the syndesmosis which had been disrupted. I then placed a 3.5 mm cortical screw through the lateral plate in order to further stabilize the syndesmotic disruption. At this point in time, I took final fluoroscopic imaging, demonstrating that I was satisfied with the fibula fracture, the fibula nonunion, the mechanical alignment of the fibula, the length of the fibula as well as the medial deltoid repair and tibia-fibular clear space and reduced syndesmosis. I was satisfied with each. I was also satisfied with the fibular plate placement, the suspensory fixation placement, potential cortical screw placement, the medial deltoid suture anchor placement. I then copiously irrigated all surgical sites both medially and laterally using three liters of normal saline. I closed the periosteum over the distal fibular plate as well as over the medial malleolar avulsion fracture and medial deltoid disruption. I closed the dermal layer using 2-0 PDS and closed the epidermis using 3-0 nylon using a running suture. I then placed Xeroform over each of the surgical incisions. The patient was placed in a well padded L and U splint using 4x4s, Webril and plaster. The patient was extubated, then transported to the postanesthesia care unit. The patient will abide by the left ankle open reduction and internal fixation rehabilitative protocol and he will be nonweightbearing for 6-8 weeks. He will return to the [facility] orthopedic clinic in two weeks for postoperative wound check and conversion to a cam boot. At that time, it will be range of motion of the left ankle as tolerated. The patient will be admitted for observation tonight and pain control. 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
--- NOTE | 2020-12-30 08:01 | REP ---
INDICATION: LEFT ANKLE FRACTURE. COMPARISON: None. TECHNIQUE: Intraoperative fluoroscopic imaging using portable C-arm technique. FINDINGS: Images demonstrate the patient to be status post open reduction and fixation for distal fibular fracture. Total fluoroscopic time 211.7 seconds. IMPRESSION: Status post open reduction and fixation for distal fibular fracture. <Electronically signed by Drake Cruz > 12/30/20 [id number]
== END 2020-12-30 09:00 | disposition home or self-care (01) ==
LOC: M SDC 13:38 → M MS5PR 22:40 → M SDC 12-30 09:00
PROVIDERS: ATTEND Orthopaedic Surgery
DX: S82.892A Other fracture of left lower leg, initial encounter for closed fracture (principal); S93.422A Sprain of deltoid ligament of left ankle, initial encounter; M89.8X7 Other specified disorders of bone, ankle and foot; W19.XXXA Unspecified fall, initial encounter; Y92.89 Other specified places as the place of occurrence of the external cause; Y93.9 Activity, unspecified; Y99.9 Unspecified external cause status; N40.0 Benign prostatic hyperplasia without lower urinary tract symptoms; E03.9 Hypothyroidism, unspecified; D64.9 Anemia, unspecified; Z79.82 Long term (current) use of aspirin; Z79.899 Other long term (current) drug therapy
CPT/HCPCS: 20680; 27695; 27724; 27766; 27829; 76000; 88300; 88304; 88311; 93005; 97116; 97161; C1713; C1762; J0131; J0690; J1100; J2250; J2370; J2405; J2765; J3010

== ENCOUNTER → 2021-01-12 | Outpatient (CLI) | payer MEDICARE ==
[~2021-01-12] MED LIST changes: -LR 1,000 ML IV ONE; -MIDAZOLAM INJ 2MG/2ML VIAL (J2250 PER 1MG) IV PRN; -fentaNYL 100 MCG/2 ML INJECTION (J3010) IV PRN
--- NOTE | 2021-01-12 12:38 | REP ---
INDICATION: F/U FX. COMPARISON: 12/18/2020 TECHNIQUE: AP, lateral, oblique views of the left ankle. FINDINGS: Patient is noted to be status post satisfactory open reduction and fixation for ankle fractures. Evaluation is limited by overlying cast material. IMPRESSION: Images demonstrate satisfactory open reduction and fixation. <Electronically signed by Drake Cruz > 01/12/21 [id number]
== END ==
LOC: M SOG 09:31
PROVIDERS: ATTEND Orthopaedic Surgery
DX: Z47.89 Encounter for other orthopedic aftercare (principal)

== ENCOUNTER → 2021-02-11 | Outpatient (CLI) | payer MEDICARE ==
--- NOTE | 2021-02-11 13:35 | REP ---
INDICATION: DISPL BIMALLEOL FX L LOW LEG, SUBS FOR CLOS FX W ROUTN HEAL. COMPARISON: 01/12/2021 TECHNIQUE: This examination was obtained at 10:20 a.m. but is just been sent to the PACS station for interpretation at 1:22 p.m. FINDINGS: Previously described ORIF with fractures all unchanged. There is some evidence of callus formation seen about the medial malleolar fracture and distal fibular fracture which was likely potentially obscured by overlying casting material on the prior exam. There is no change in alignment. IMPRESSION: As above. <Electronically signed by Say Kc > 02/11/21 [id number]
== END ==
LOC: M SOG 09:56
PROVIDERS: ATTEND Orthopaedic Surgery
DX: S82.842D Displaced bimalleolar fracture of left lower leg, subsequent encounter for closed fracture with routine healing (principal)

== ENCOUNTER → 2021-03-25 | Outpatient (CLI) | payer MEDICARE ==
--- NOTE | 2021-03-25 08:59 | REP ---
INDICATION: DISPL BIMALLEOL FX L LOW LEG, SUBS FOR CLOS FX W ROUTN HEAL. COMPARISON: 02/11/2021 TECHNIQUE: Five views standing FINDINGS: Note is again made of previous ORIF. The cancellous screw seen spanning both distal fibula and tibia has fractured since the last exam. There are no other significant changes. The fibular fracture continues to heal. The transverse fracture through the medial malleolus is unchanged and has not yet fused. IMPRESSION: 1. Fixation screw fracture as described above. 2. Other findings as described above. <Electronically signed by Say Kc > 03/25/21 [id number]
== END ==
LOC: M SOG 08:06
PROVIDERS: ATTEND Orthopaedic Surgery
DX: S82.842D Displaced bimalleolar fracture of left lower leg, subsequent encounter for closed fracture with routine healing (principal); X58.XXXD Exposure to other specified factors, subsequent encounter

== ENCOUNTER → 2021-04-14 | Outpatient (REF) | payer MEDICARE ==
[2021-04-14 12:56] LABS: BASO # 0.1 10^3/uL (0.0-0.2); BASO % 1.4 % (0.0-1.0); EOS # 0.3 10^3/uL (0.0-0.5); EOS % 6.4 % (0.0-3.0); HEMATOCRIT 37.8 % (42.0-52.0); HEMOGLOBIN 12.2 g/dl (13.5-17.5); LYMPH # 1.2 10^3/uL (1.5-5.0); LYMPH % 28.2 % (24.0-44.0); MEAN CORPUSCULAR HEMOGLOBIN 29.8 pg (27.0-33.0); MEAN CORPUSCULAR HGB CONC 32.3 g/dl (32.0-36.5); MEAN CORPUSCULAR VOLUME 92.4 fl (80.0-96.0); MONO # 0.5 10^3/uL (0.0-0.8); MONO % 12.4 % (2.0-8.0); NEUTROPHILS # 2.2 10^3/uL (1.5-8.5); NEUTROPHILS % 51.4 % (36.0-66.0); PLATELET COUNT, AUTOMATED 238 10^3/uL (150-450); RED BLOOD COUNT 4.09 10^6/uL (4.30-6.10); WHITE BLOOD COUNT 4.4 10^3/uL (4.0-10.0)
[2021-04-14 13:24] LABS: HEMOGLOBIN A1c 6.1 %
[2021-04-14 13:27] LABS: ALBUMIN 3.3 GM/DL (3.2-5.2); ALT/SGPT 30 U/L (12-78); BILIRUBIN,TOTAL 0.3 MG/DL (0.2-1.0); BLOOD UREA NITROGEN 39 MG/DL (7-18); CALCIUM LEVEL 8.4 MG/DL (8.8-10.2); CARBON DIOXIDE LEVEL 31 MEQ/L (21-32); CHLORIDE LEVEL 110 MEQ/L (98-107); CHOLESTEROL LEVEL 140 MG/DL (<200); CHOLESTEROL RISK RATIO 2.372 (<5); CREATININE FOR GFR 0.89 MG/DL (0.70-1.30); FERRITIN 40 NG/ML (26-388); GLOMERULAR FILTRATION RATE > 60.0 (>42); GLUCOSE, FASTING 83 MG/DL (70-100); HDL CHOLESTEROL 59 MG/DL (>40); IRON (FE) 91 UG/DL (65-175); LDL CHOLESTEROL 71 MG/DL (<100); NON-HDL-C 81 MG/DL; PERCENT SATURATION 30.1 % (19.7-50.0); POTASSIUM SERUM 4.3 MEQ/L (3.5-5.1); SODIUM LEVEL 142 MEQ/L (136-145); TOTAL IRON BINDING CAPACITY 302 UG/DL (250-450); TOTAL PROTEIN 6.7 GM/DL (6.4-8.2); TRIGLYCERIDES LEVEL 49 MG/DL (<150)
[2021-04-14 13:28] LABS: FOLATE 7.2 NG/ML; VITAMIN B12 LEVEL 382 PG/ML
== END ==
LOC: M SFHCADAM 08:02
PROVIDERS: ATTEND Physician Assistant Medical
DX: I50.22 Chronic systolic (congestive) heart failure (principal); E55.9 Vitamin D deficiency, unspecified; E03.9 Hypothyroidism, unspecified; D63.8 Anemia in other chronic diseases classified elsewhere; Z79.899 Other long term (current) drug therapy

== ENCOUNTER 2021-11-02 12:31 | Observation (INO) | payer MEDICARE ==
[~2021-11-02] VITALS: Ht 172.7 cm; Wt 73.6 kg
[~2021-11-02 12:31] MED LIST changes: -D31000TA2 PO; +VITA100093 PO
[2021-11-02] MEDS ORDERED: SILD100T (12:44)
[2021-11-02] MEDS ORDERED: ceFAZolin SOD 2 GM in IV 1 EA IV ONE (14:30)
[2021-11-02 14:58] LABS: BASO # 0.1 10^3/uL (0.0-0.2); BASO % 0.9 % (0.0-1.0); EOS # 0.1 10^3/uL (0.0-0.5); EOS % 1.5 % (0.0-3.0); HEMATOCRIT 35.5 % (42.0-52.0); HEMOGLOBIN 11.7 g/dl (13.5-17.5); LYMPH # 1.2 10^3/uL (1.5-5.0); LYMPH % 15.1 % (24.0-44.0); MEAN CORPUSCULAR HEMOGLOBIN 29.7 pg (27.0-33.0); MEAN CORPUSCULAR VOLUME 90.1 fl (80.0-96.0); MONO # 0.9 10^3/uL (0.0-0.8); MONO % 11.2 % (2.0-8.0); NEUTROPHILS # 5.8 10^3/uL (1.5-8.5); NEUTROPHILS % 71.1 % (36.0-66.0); PLATELET COUNT, AUTOMATED 267 10^3/uL (150-450); RED BLOOD COUNT 3.94 10^6/uL (4.30-6.10); WHITE BLOOD COUNT 8.1 10^3/uL (4.0-10.0)
[2021-11-02 15:17] LABS: BLOOD UREA NITROGEN 30 MG/DL (7-18); C REACTIVE PROTEIN QUANTITATIV 3.97 MG/DL (0.00-0.30); CALCIUM LEVEL 8.5 MG/DL (8.8-10.2); CARBON DIOXIDE LEVEL 30 MEQ/L (21-32); CHLORIDE LEVEL 104 MEQ/L (98-107); CREATININE FOR GFR 0.86 MG/DL (0.70-1.30); GLOMERULAR FILTRATION RATE > 60.0 (>42); GLUCOSE, FASTING 87 MG/DL (70-100); POTASSIUM SERUM 4.2 MEQ/L (3.5-5.1); SODIUM LEVEL 137 MEQ/L (136-145)
[2021-11-02 15:25] LABS: ERYTHROCYTE SEDIMENTATION RATE 47 mm/hr (0-20)
[2021-11-02 18:19] LABS: RSV AMPLIFICATION NEGATIVE (NEGATIVE)
[2021-11-02] MEDS ORDERED: ACETAMINOPHEN *IV* 650 MG in IV 1 EA IV ONE (19:30)
[2021-11-02] MEDS ORDERED: SILD100T PO (21:30)
[2021-11-02] MEDS ORDERED: METOCLOPRAMIDE INJ 10MG/2ML VIAL (J2765 PER 1) As Ordered ONE (21:51)
[2021-11-02] MEDS ORDERED: propofoL 200 MG/20 ML VIAL As Ordered ONE (21:51)
[2021-11-02] MEDS ORDERED: MIDAZOLAM INJ 2MG/2ML VIAL (J2250 PER 1MG) As Ordered ONE (21:51)
[2021-11-02] MEDS ORDERED: dexameTHASONE 4 MG/ML 1ML VIAL (J1100 PER 1MG) As Ordered ONE (21:51)
[2021-11-02] MEDS ORDERED: ONDANSETRON 4MG/2ML VIAL As Ordered ONE (21:51)
[2021-11-02] MEDS ORDERED: LIDOCAINE 2% 100MG/5ML SDV (FOR ANES.) As Ordered ONE (21:51)
[2021-11-02] MEDS ORDERED: fentaNYL 100 MCG/2 ML INJECTION As Ordered ONE (21:51)
[2021-11-02] MEDS ORDERED: ceFAZolin 2 GM/D5W 50 ML IV BAG (J0690 PER 500MG) As Ordered ONE (21:57)
[2021-11-02] MEDS ORDERED: LIDOCAINE 1% MDV 20ML VIAL As Ordered ONE (21:57)
[2021-11-02] MEDS ORDERED: BUPIVACAINE HCL 0.25% 10ML VIAL As Ordered ONE (21:57)
[2021-11-02] MEDS ORDERED: ACETAMINOPHEN 1000MG 100ML IV BTL (OFIRMEV) (J0131 PER 10MG) As Ordered ONE (22:04)
[2021-11-02] MEDS ORDERED: ePHEDrine SULFATE 25 MG/5 ML(5MG/ML) SYRINGE As Ordered ONE (22:10)
[2021-11-02] MEDS ORDERED: GLYCOPYRROLATE INJ 0.2 MG/ML 2 ML VIAL As Ordered ONE (22:10)
[2021-11-02] MEDS ORDERED: PHENYLephrine 500MCG 5ML (100MCG/ML) SYRINGE As Ordered ONE ×2 (22:10→22:25)
[2021-11-02] MEDS ORDERED: LR 1,000 ML IV SCH (23:30)
[2021-11-02] MEDS ORDERED: oxyCODONE 5MG TAB PO PRN (23:30)
[2021-11-02] MEDS ORDERED: ONDANSETRON 4MG/2ML VIAL IV PRN (23:30)
[2021-11-02] MEDS ORDERED: fentaNYL 100 MCG/2 ML INJECTION IV PRN (23:30)
[2021-11-03] VITALS (7 sets, daily range): BP systolic 117–134; BP diastolic 65–68
[2021-11-03] MEDS ORDERED: MAALOX 30 ML SUSP *UDC PO PRN (02:40)
[2021-11-03] MEDS ORDERED: MOM 30ML SUSPENSION UDC PO PRN (02:40)
[2021-11-03] MEDS ORDERED: ACETAMINOPHEN TAB 650MG DOSE (2X325MG) PO PRN (02:40)
[2021-11-03] MEDS: PERCOCET 5MG/325MG TAB PO PRN ×3 (02:47→18:14)
[2021-11-03] MEDS: HEPARIN SOD (PORCINE) 5000UNITS/ML 1ML VIAL/SYRINGE SC SCH ×3 (05:10→21:33)
[2021-11-03] MEDS: ceFAZolin SOD 2 GM in IV 1 EA IV SCH ×3 (05:10→21:32)
[2021-11-03] MEDS: LEVOTHYROXINE 88MCG TABLET (0.088 MG) PO SCH (05:10)
[2021-11-03 07:51] LABS: BASO % 0.3 % (0.0-1.0); HEMATOCRIT 33.5 % (42.0-52.0); LYMPH # 0.7 10^3/uL (1.5-5.0); LYMPH % 9.5 % (24.0-44.0); MEAN CORPUSCULAR HGB CONC 32.8 g/dl (32.0-36.5); MEAN CORPUSCULAR VOLUME 91.3 fl (80.0-96.0); MONO # 0.4 10^3/uL (0.0-0.8); MONO % 5.9 % (2.0-8.0); NEUTROPHILS # 6.1 10^3/uL (1.5-8.5); NEUTROPHILS % 83.9 % (36.0-66.0); PLATELET COUNT, AUTOMATED 269 10^3/uL (150-450); RED BLOOD COUNT 3.67 10^6/uL (4.30-6.10); WHITE BLOOD COUNT 7.3 10^3/uL (4.0-10.0)
[2021-11-03 08:21] LABS: BLOOD UREA NITROGEN 24 MG/DL (7-18); CALCIUM LEVEL 8.1 MG/DL (8.8-10.2); CARBON DIOXIDE LEVEL 29 MEQ/L (21-32); CHLORIDE LEVEL 102 MEQ/L (98-107); CREATININE FOR GFR 0.97 MG/DL (0.70-1.30); GLOMERULAR FILTRATION RATE > 60.0 (>42); GLUCOSE, FASTING 152 MG/DL (70-100); POTASSIUM SERUM 4.4 MEQ/L (3.5-5.1); SODIUM LEVEL 136 MEQ/L (136-145)
[2021-11-03] MEDS: FINASTERIDE 5MG TAB PO SCH (08:41)
[2021-11-03] MEDS: FERROUS SULFATE 325MG TAB PO SCH (08:41)
[2021-11-03 11:21] LABS: C REACTIVE PROTEIN QUANTITATIV 5.77 MG/DL (0.00-0.30)
[2021-11-03 11:45] LABS: ERYTHROCYTE SEDIMENTATION RATE 42 mm/hr (0-20)
[2021-11-03] MEDS ORDERED: VITAMIN D 1,000 INTERNATIONAL UNITS TABLET PO SCH (21:00)
[2021-11-03] MEDS ORDERED: TAMSULOSIN 0.4 MG CAP PO SCH (21:00)
[2021-11-04] MEDS: PERCOCET 5MG/325MG TAB PO PRN ×3 (00:18→15:01)
[2021-11-04 06:00] VITALS: BP 146/71
[2021-11-04] MEDS: ceFAZolin SOD 2 GM in IV 1 EA IV SCH (06:16)
[2021-11-04] MEDS: LEVOTHYROXINE 88MCG TABLET (0.088 MG) PO SCH (06:16)
[2021-11-04] MEDS: HEPARIN SOD (PORCINE) 5000UNITS/ML 1ML VIAL/SYRINGE SC SCH (06:16)
[2021-11-04 06:42] LABS: BASO # 0.1 10^3/uL (0.0-0.2); BASO % 0.9 % (0.0-1.0); EOS # 0.1 10^3/uL (0.0-0.5); HEMATOCRIT 30.6 % (42.0-52.0); LYMPH # 1.6 10^3/uL (1.5-5.0); LYMPH % 28.3 % (24.0-44.0); MEAN CORPUSCULAR HEMOGLOBIN 30.1 pg (27.0-33.0); MEAN CORPUSCULAR HGB CONC 32.7 g/dl (32.0-36.5); MEAN CORPUSCULAR VOLUME 92.2 fl (80.0-96.0); MONO # 0.7 10^3/uL (0.0-0.8); MONO % 12.3 % (2.0-8.0); NEUTROPHILS # 3.1 10^3/uL (1.5-8.5); NEUTROPHILS % 56.3 % (36.0-66.0); PLATELET COUNT, AUTOMATED 241 10^3/uL (150-450); RED BLOOD COUNT 3.32 10^6/uL (4.30-6.10); WHITE BLOOD COUNT 5.6 10^3/uL (4.0-10.0)
[2021-11-04 07:18] LABS: ERYTHROCYTE SEDIMENTATION RATE 43 mm/hr (0-20)
[2021-11-04] MEDS: FINASTERIDE 5MG TAB PO SCH (08:50)
[2021-11-04] MEDS: FERROUS SULFATE 325MG TAB PO SCH (08:50)
[2021-11-04] MEDS ORDERED: CEPH500C PO (11:34)
[2021-11-04] MEDS ORDERED: PERCOCET PO (15:00)
== END 2021-11-04 15:05 | disposition home or self-care (01) ==
LOC: M ED 12:31 → M MS5PR 13:32 → M ED 21:25 → M MS5PR 11-03 00:40 → UNDOADMOB 11-03 00:40 → UNDODISOB 11-04 15:05
PROVIDERS: ADMIT Internal Medicine; ATTEND Internal Medicine
DX: S63.431A Traumatic rupture of volar plate of left index finger at metacarpophalangeal and interphalangeal joint, initial encounter (principal); M65.842 Other synovitis and tenosynovitis, left hand; W23.1XXA Caught, crushed, jammed, or pinched between stationary objects, initial encounter; Y93.H2 Activity, gardening and landscaping; Y92.016 Swimming-pool in single-family (private) house or garden as the place of occurrence of the external cause; Y99.9 Unspecified external cause status; E03.9 Hypothyroidism, unspecified; N40.1 Benign prostatic hyperplasia with lower urinary tract symptoms; H50.9 Unspecified strabismus; E55.9 Vitamin D deficiency, unspecified; N52.9 Male erectile dysfunction, unspecified; Z79.899 Other long term (current) drug therapy
CPT/HCPCS: 11042; 36415; 73140; 80048; 83605; 85025; 85652; 86140; 87040; 87070; 87075; 87077; 87205; 87631; 96365; 96366; 96372; 96375; 99284; G0378; J0131; J0690; J1100; J1644; J2250; J2370; J2405; J2765; J3010

== ENCOUNTER → 2021-12-06 | Outpatient (REF) | payer MEDICARE ==
[~2021-12-06] MED LIST changes: +CEPH500C PO; +SILD100T; +SILD100T PO
[2021-12-06 16:45] LABS: BASO # 0.1 10^3/uL (0.0-0.2); EOS # 0.2 10^3/uL (0.0-0.5); HEMATOCRIT 37.1 % (42.0-52.0); HEMOGLOBIN 12.1 g/dl (13.5-17.5); LYMPH # 1.8 10^3/uL (1.5-5.0); LYMPH % 23.4 % (24.0-44.0); MEAN CORPUSCULAR HEMOGLOBIN 29.4 pg (27.0-33.0); MEAN CORPUSCULAR HGB CONC 32.6 g/dl (32.0-36.5); MONO # 0.8 10^3/uL (0.0-0.8); NEUTROPHILS # 4.8 10^3/uL (1.5-8.5); NEUTROPHILS % 62.9 % (36.0-66.0); PLATELET COUNT, AUTOMATED 287 10^3/uL (150-450); RED BLOOD COUNT 4.12 10^6/uL (4.30-6.10); WHITE BLOOD COUNT 7.6 10^3/uL (4.0-10.0)
[2021-12-06 17:19] LABS: ALBUMIN 3.3 GM/DL (3.2-5.2); ALT/SGPT 30 U/L (12-78); BILIRUBIN,TOTAL 0.2 MG/DL (0.2-1.0); BLOOD UREA NITROGEN 22 MG/DL (7-18); CARBON DIOXIDE LEVEL 29 MEQ/L (21-32); CHLORIDE LEVEL 106 MEQ/L (98-107); CHOLESTEROL LEVEL 155 MG/DL (<200); CHOLESTEROL RISK RATIO 2.672 (<5); CREATININE FOR GFR 0.92 MG/DL (0.70-1.30); GLOMERULAR FILTRATION RATE > 60.0 (>42); GLUCOSE, FASTING 92 MG/DL (70-100); HDL CHOLESTEROL 58 MG/DL (>40); LDL CHOLESTEROL 81 MG/DL (<100); NON-HDL-C 97 MG/DL; POTASSIUM SERUM 4.3 MEQ/L (3.5-5.1); SODIUM LEVEL 141 MEQ/L (136-145); TOTAL PROTEIN 7.1 GM/DL (6.4-8.2); TRIGLYCERIDES LEVEL 82 MG/DL (<150)
== END ==
LOC: M SFHCADAM 14:03
PROVIDERS: ATTEND Physician Assistant Medical
DX: E55.9 Vitamin D deficiency, unspecified (principal); E03.9 Hypothyroidism, unspecified; I50.22 Chronic systolic (congestive) heart failure; D63.8 Anemia in other chronic diseases classified elsewhere; Z79.899 Other long term (current) drug therapy

== ENCOUNTER → 2021-12-31 | Outpatient (CLI) | payer MEDICARE | LOC: M PLARAD 08:10 | PROVIDERS: ATTEND Orthopaedic Surgery Hand Surgery | DX: M25.532 Pain in left wrist (principal) ==

== ENCOUNTER → 2022-02-25 | Outpatient (CLI) | payer MEDICARE | LOC: M CARPUL 08:46 | PROVIDERS: ATTEND Physician Assistant Medical | DX: I50.22 Chronic systolic (congestive) heart failure (principal) ==

== ENCOUNTER → 2022-06-13 | Outpatient (CLI) | payer MEDICARE | LOC: M LABDRWAD 12:55 | PROVIDERS: ATTEND Physician Assistant Medical | DX: E55.9 Vitamin D deficiency, unspecified (principal); E03.9 Hypothyroidism, unspecified; I50.22 Chronic systolic (congestive) heart failure ==

== ENCOUNTER → 2022-06-13 | Outpatient (CLI) | payer MEDICARE ==
[2022-06-13 18:13] LABS: BASO # 0.1 10^3/uL (0.0-0.2); BASO % 1.2 % (0.0-1.0); EOS # 0.2 10^3/uL (0.0-0.5); EOS % 3.4 % (0.0-3.0); HEMOGLOBIN 11.9 g/dl (13.5-17.5); LYMPH # 1.6 10^3/uL (1.5-5.0); MEAN CORPUSCULAR HEMOGLOBIN 30.6 pg (27.0-33.0); MEAN CORPUSCULAR HGB CONC 31.3 g/dl (32.0-36.5); MEAN CORPUSCULAR VOLUME 97.7 fl (80.0-96.0); MONO # 0.6 10^3/uL (0.0-0.8); MONO % 10.1 % (2.0-8.0); NEUTROPHILS # 3.3 10^3/uL (1.5-8.5); NEUTROPHILS % 57.1 % (36.0-66.0); PLATELET COUNT, AUTOMATED 260 10^3/uL (150-450); RED BLOOD COUNT 3.89 10^6/uL (4.30-6.10); WHITE BLOOD COUNT 5.9 10^3/uL (4.0-10.0)
[2022-06-13 18:54] LABS: ALBUMIN 3.4 GM/DL (3.2-5.2); ALT/SGPT 29 U/L (12-78); BILIRUBIN,TOTAL 0.3 MG/DL (0.2-1.0); BLOOD UREA NITROGEN 31 MG/DL (7-18); CALCIUM LEVEL 8.6 MG/DL (8.8-10.2); CARBON DIOXIDE LEVEL 30 MEQ/L (21-32); CHLORIDE LEVEL 106 MEQ/L (98-107); CHOLESTEROL LEVEL 153 MG/DL (<200); CHOLESTEROL RISK RATIO 1.738 (<5); CREATININE FOR GFR 0.73 MG/DL (0.70-1.30); GLOMERULAR FILTRATION RATE > 60.0 (>42); GLUCOSE, FASTING 86 MG/DL (70-100); HDL CHOLESTEROL 88 MG/DL (>40); LDL CHOLESTEROL 56 MG/DL (<100); NON-HDL-C 65 MG/DL; POTASSIUM SERUM 4.2 MEQ/L (3.5-5.1); SODIUM LEVEL 138 MEQ/L (136-145); TOTAL PROTEIN 6.9 GM/DL (6.4-8.2); TRIGLYCERIDES LEVEL 47 MG/DL (<150)
[2022-06-13 19:25] LABS: TOTAL 25(OH) VITAMIN D 44.8 NG/ML (30.0-100.0)
== END ==
LOC: M LABDRWAD 11:58
PROVIDERS: ATTEND Physician Assistant Medical
DX: E55.9 Vitamin D deficiency, unspecified (principal); E03.9 Hypothyroidism, unspecified; I50.22 Chronic systolic (congestive) heart failure

== ENCOUNTER → 2023-06-14 | Outpatient (REF) | payer MEDICARE ==
[~2023-06-14] MED LIST changes: +FINA-48 PO; -PROS5TAB PO
[2023-06-14 13:29] LABS: ALBUMIN 3.7 G/DL (3.2-5.2); ALKALINE PHOSPHATASE 74 U/L (46-116); ALT/SGPT 24 U/L (7.0-40); AST/SGOT 25 U/L (<34); BILIRUBIN,TOTAL 0.3 MG/DL (0.3-1.2); BLOOD UREA NITROGEN 32 MG/DL (9-23); CALCIUM LEVEL 9.3 MG/DL (8.3-10.6); CARBON DIOXIDE LEVEL 30 MMOL/L (20-31); CHLORIDE LEVEL 105 MMOL/L (98-107); CHOLESTEROL LEVEL 174 MG/DL (<200); CHOLESTEROL RISK RATIO 2.48 (<5); CREATININE FOR GFR 0.88 MG/DL (0.70-1.30); GLOMERULAR FILTRATION RATE > 60.0 (>42); GLUCOSE, FASTING 103 MG/DL (74-106); LDL CHOLESTEROL 92.4 MG/DL (<100); POTASSIUM SERUM 5.2 MMOL/L (3.5-5.1); SODIUM LEVEL 139 MMOL/L (136-145); THYROID STIMULATING HORMONE 2.884 uIU/ML (0.55-4.78); TOTAL 25(OH) VITAMIN D 60.6 NG/ML (20.0-100.0); TOTAL PROTEIN 6.8 G/DL (5.7-8.2); TRIGLYCERIDES LEVEL 58 MG/DL (<150)
[2023-06-14 14:42] LABS: BASO # 0.1 10^3/uL (0.0-0.2); BASO % 1.4 % (0.0-1.0); EOS # 0.3 10^3/uL (0.0-0.5); EOS % 5.2 % (0.0-3.0); HEMATOCRIT 39.5 % (42.0-52.0); LYMPH # 1.7 10^3/uL (1.5-5.0); LYMPH % 32.8 % (24.0-44.0); MEAN CORPUSCULAR HEMOGLOBIN 31.6 pg (27.0-33.0); MEAN CORPUSCULAR HGB CONC 32.9 g/dl (32.0-36.5); MEAN CORPUSCULAR VOLUME 95.9 fl (80.0-96.0); MONO # 0.6 10^3/uL (0.0-0.8); MONO % 11.4 % (2.0-8.0); NEUTROPHILS # 2.5 10^3/uL (1.5-8.5); PLATELET COUNT, AUTOMATED 279 10^3/uL (150-450); RED BLOOD COUNT 4.12 10^6/uL (4.30-6.10); WHITE BLOOD COUNT 5.2 10^3/uL (4.0-10.0)
== END ==
LOC: M SFHCADAM 07:59
PROVIDERS: ATTEND Physician Assistant Medical
DX: I50.22 Chronic systolic (congestive) heart failure (principal); E55.9 Vitamin D deficiency, unspecified; N40.1 Benign prostatic hyperplasia with lower urinary tract symptoms; D63.8 Anemia in other chronic diseases classified elsewhere; Z79.899 Other long term (current) drug therapy

== ENCOUNTER → 2024-06-13 | Outpatient (REF) | payer MEDICARE ==
[2024-06-13 13:15] LABS: BASO # 0.1 10^3/uL (0.0-0.2); BASO % 1.3 % (0.0-1.0); EOS # 0.2 10^3/uL (0.0-0.5); EOS % 3.6 % (0.0-3.0); HEMATOCRIT 39.6 % (42.0-52.0); HEMOGLOBIN 12.9 g/dl (13.5-17.5); LYMPH # 1.5 10^3/uL (1.5-5.0); LYMPH % 26.4 % (24.0-44.0); MEAN CORPUSCULAR HEMOGLOBIN 30.9 pg (27.0-33.0); MEAN CORPUSCULAR HGB CONC 32.6 g/dl (32.0-36.5); MONO # 0.7 10^3/uL (0.0-0.8); MONO % 12.7 % (2.0-8.0); NEUTROPHILS # 3.1 10^3/uL (1.5-8.5); NEUTROPHILS % 55.8 % (36.0-66.0); PLATELET COUNT, AUTOMATED 240 10^3/uL (150-450); RED BLOOD COUNT 4.17 10^6/uL (4.30-6.10); WHITE BLOOD COUNT 5.5 10^3/uL (4.0-10.0)
[2024-06-13 13:17] LABS: FERRITIN 90.9 NG/ML (10.5-307.3); FREE T4 1.25 NG/DL (0.89-1.76); THYROID STIMULATING HORMONE 3.657 uIU/ML (0.55-4.78)
[2024-06-13 13:19] LABS: ALBUMIN 3.5 G/DL (3.2-5.2); ALKALINE PHOSPHATASE 80 U/L (46-116); ALT/SGPT 23 U/L (7.0-40); AST/SGOT 18 U/L (<34); BILIRUBIN,TOTAL 0.4 MG/DL (0.3-1.2); BLOOD UREA NITROGEN 35 MG/DL (9-23); CALCIUM LEVEL 9.3 MG/DL (8.3-10.6); CARBON DIOXIDE LEVEL 30 MMOL/L (20-31); CHLORIDE LEVEL 110 MMOL/L (98-107); CHOLESTEROL LEVEL 168 MG/DL (<200); CHOLESTEROL RISK RATIO 2.64 (<5); GLOMERULAR FILTRATION RATE > 60.0 (>42); GLUCOSE, FASTING 111 MG/DL (74-106); HDL CHOLESTEROL 63.4 MG/DL (>40); IRON (FE) 79 UG/DL (65-175); NON-HDL-C 104.6 MG/DL; PERCENT SATURATION 25.2 % (19.7-50.0); POTASSIUM SERUM 4.1 MMOL/L (3.5-5.1); SODIUM LEVEL 142 MMOL/L (136-145); TOTAL IRON BINDING CAPACITY 314 UG/DL (250-425); TOTAL PROTEIN 6.9 G/DL (5.7-8.2); TRIGLYCERIDES LEVEL 43 MG/DL (<150)
[2024-06-13 13:20] LABS: FOLATE 11.8 NG/ML (>5.4); TOTAL 25(OH) VITAMIN D 62.8 NG/ML (20.0-100.0)
[2024-06-13 13:21] LABS: VITAMIN B12 LEVEL 384 PG/ML (211-911)
== END ==
LOC: M SFHCADAM 08:04
PROVIDERS: ATTEND Physician Assistant Medical
DX: I50.22 Chronic systolic (congestive) heart failure (principal); E55.9 Vitamin D deficiency, unspecified; E03.9 Hypothyroidism, unspecified; D63.8 Anemia in other chronic diseases classified elsewhere

== ENCOUNTER → 2024-07-01 | Outpatient (CLI) | payer MEDICARE | LOC: M CARPUL 15:40 | PROVIDERS: ATTEND Physician Assistant Medical | DX: I50.22 Chronic systolic (congestive) heart failure (principal) ==

== ENCOUNTER → 2025-06-17 | Outpatient (REF) | payer MEDICARE ==
[2025-06-17 14:32] LABS: BASO # 0.1 10^3/uL (0.0-0.2); BASO % 1.6 % (0.0-1.0); EOS # 0.1 10^3/uL (0.0-0.5); EOS % 2.6 % (0.0-3.0); LYMPH # 1.3 10^3/uL (1.5-5.0); LYMPH % 24.9 % (24.0-44.0); MONO # 0.7 10^3/uL (0.0-0.8); MONO % 12.9 % (2.0-8.0); NEUTROPHILS # 2.9 10^3/uL (1.5-8.5); NEUTROPHILS % 57.8 % (36.0-66.0); PLATELET COUNT, AUTOMATED 257 10^3/uL (150-450)
[2025-06-17 14:41] LABS: ESTIMATED AVERAGE GLUCOSE 123.0 MG/DL (60-110)
[2025-06-17 14:59] LABS: IRON (FE) 96.0 UG/DL (65-175)
[2025-06-17 15:00] LABS: ALT/SGPT 27.0 U/L (7.0-40); AST/SGOT 26.0 U/L (<34); CALCIUM LEVEL 9.4 MG/DL (8.3-10.6); CARBON DIOXIDE LEVEL 30.0 MMOL/L (20-31); CHLORIDE LEVEL 106.0 MMOL/L (98-107); CHOLESTEROL LEVEL 166.0 MG/DL (<200); CHOLESTEROL RISK RATIO 2.46 (<5); CREATININE FOR GFR 0.81 MG/DL (0.70-1.30); GLOMERULAR FILTRATION RATE 89.7 (>42); LDL CHOLESTEROL 84.3 MG/DL (<100); NON-HDL-C 98.7 MG/DL; PERCENT SATURATION 29.6 % (19.7-50.0); POTASSIUM SERUM 4.2 MMOL/L (3.5-5.1); SODIUM LEVEL 143.0 MMOL/L (136-145); TOTAL 25(OH) VITAMIN D 32.0 NG/ML (20.0-100.0); TRIGLYCERIDES LEVEL 72.0 MG/DL (<150)
[2025-06-17 15:01] LABS: FREE T4 1.14 NG/DL (0.89-1.76)
== END ==
LOC: M SFHCADAM 10:55
PROVIDERS: ATTEND Physician Assistant Medical
DX: I50.22 Chronic systolic (congestive) heart failure (principal); E55.9 Vitamin D deficiency, unspecified; E03.9 Hypothyroidism, unspecified; D63.8 Anemia in other chronic diseases classified elsewhere; N40.0 Benign prostatic hyperplasia without lower urinary tract symptoms; K21.9 Gastro-esophageal reflux disease without esophagitis; Z79.899 Other long term (current) drug therapy